=== PATIENT | male | born 1955 | race Caucasian/White ===

== ENCOUNTER 2022-12-03 13:41 | Observation (INO) | payer MEDICARE ==
[2022-12-03] MEDS ORDERED: solu-MEDROL 125 MG, Sterile H2O 10 ml 2 ML IV ONE ×2 (13:58)
[2022-12-03] MEDS ORDERED: PROVENTIL 2.5 MG/3 ML NEB IH ONE ×2 (13:58→14:12)
[2022-12-03] MEDS ORDERED: solu-MEDROL ONE (14:06)
[2022-12-03] MEDS ORDERED: Sterile H2O 10 ml IJ ONE ×2 (14:06→20:27)
[2022-12-03 14:12] LABS: Absolute Neutrophil Ct (ANC) 14.41 x10^3/uL (1.4-6.9); BASOPHIL % 0.3 % (0.0-0.4); Basophil (Absolute #) 0.05 x10^3/uL (0-0.4); Eosinophil % 1.4 % (0.00-5.0); Eosinophil (Absolute #) 0.25 x10^3/uL (0-0.5); Hematocrit 39.9 % (42-50); Hemoglobin 13.2 g/dL (12.5-18.0); IMMATURE GRAN # 0.08 x10^3u/L (0.00-0.03); IMMATURE GRAN % 0.4 % (0.00-0.4); Lymphocytes % 7.8 % (24.0-44.0); Mean Cell Volume 86.7 fL (78-100); Mean Corpuscular Hemoglobin 28.7 pg (26-32); Mean Corpuscular Hgb Concent. 33.1 g/dL (32-36); Mean Platelet Volume 9.3 fL (7.5-11.0); Monocyte (Absolute #) 1.65 x10^3/uL (0.0-1.3); Monocytes % 9.2 % (0.0-12.0); Neutrophil % 80.9 % (36.0-66.0); Platelet Count 463 x10^3/uL (150-450); White Blood Count 17.8 x10^3/uL (4.0-10.5)
--- NOTE | 2022-12-03 14:14 | XRAY ---
Indication: Short of breath. Comparison: None Portable chest demonstrates extensive COPD and large irregular left suprahilar masslike opacity better evaluated with CT with contrast exam. Heart not enlarged. Bony thorax intact.
--- NOTE | 2022-12-03 14:25 | ERPHSYRPT ---
- History of Present Illness Time Seen by Provider: 12/03/22 14:30 Source: patient Exam Limitations: no limitations Patient Subjective Stated Complaint: pt states I have been short of breath since friday. pt states I started coughing today and just couldn't catch my breath Triage Nursing Assessment: pt came into the er via wheelchair; pt is axo x3; c/o SOB; pt is tripod position; labored breathing; diminished lung sounds in all lobes; hypoxia; tachycardic; hypertensive; skin is hot to the touch, pink Physician History: Patient is a 67-year-old male presents emergency department for evaluation of shortness of breath and cough x4 days. Patient has history of COPD. Symptoms have been getting progressively worse. No nausea vomiting or diaphoresis. No chest pain or shortness of breath. No fever. Upon arrival to our ED patient was found to be hypoxic at 92% on room air. Patient was tachycardic at 119. Patient has a history of COPD and states that his symptoms are the same. Patient believes he is experiencing a COPD exacerbation. Patient voices no other complaints or concerns at this time. Portions of this note were created with voice recognition technology. There may be grammatical, spelling, punctuation or sound alike errors Timing/Duration: day(s) (4 days) Activities at Onset: activity Severity of Dyspnea-Max: moderate Severity of Dyspnea-Current: mild Possible Cause: frequent episodes Modifying Factors: Improves With: albuterol nebulizer Associated Symptoms: cough, No edema Allergies/Adverse Reactions: codeine Allergy (Verified 12/03/22 13:45) Anaphylactic Reaction Home Medications: Albuterol 2.5 mg/3 ml Neb [Proventil 2.5 mg/3 ml Neb] 2.5 mg IH Q6H PRN PRN 12/03/22 [History] Albuterol Sulfate [Albuterol Sulfate Hfa] 18 gm IH Q4HPRN PRN 12/03/22 [History] Aspirin EC 81 mg [Ecotrin 81 mg] 81 mg PO DAILY 12/03/22 [History] Budesonide/Formoterol Fumarate [Budesonide-Formoterol 160-4.5] 10.2 gm IH DAILY 12/03/22 [History] Levothyroxine Sodium [Levothyroxine] 50 mcg PO DAILY 12/03/22 [History] Lisinopril 10 mg [Zestril 10 MG] 10 mg PO DAILY 12/03/22 [History] Pravastatin Sodium 80 mg PO HS 12/03/22 [History] Roflumilast 500 mcg PO DAILY 12/03/22 [History] Theophylline Anhydrous [Theophylline ER] 300 mg PO BID 12/03/22 [History] Tiotropium [place] [Spiriva Respimat] 4 gm IH DAILY 12/03/22 [History] Ubidecarenone [Co Q10] 200 mg PO DAILY 12/03/22 [History] Hx Tetanus, Diphtheria Vaccination/Date Given: Yes Hx Influenza Vaccination/Date Given: Yes Hx Pneumococcal Vaccination/Date Given: No Immunizations Up to Date: No Travel Risk - International Travel Have you traveled outside of the country in past 3 weeks: No - Coronavirus Screening Are you exhibiting any of the following symptoms?: Yes Symptoms: Shortness of Breath Close contact with a COVID-19 positive Pt in past 14-21 Days: No - Vaccine Status Have you recieved a Covid-19 vaccination: No - Review of Systems Constitutional: No Symptoms, No Fever, No Chills Eyes: No Symptoms Ears, Nose, & Throat: No Symptoms Respiratory: No Symptoms, No Cough, No Dyspnea Cardiac: No Symptoms, No Chest Pain, No Edema, No Syncope Abdominal/Gastrointestinal: No Symptoms, No Abdominal Pain, No Nausea, No Vomiting, No Diarrhea Genitourinary Symptoms: No Symptoms, No Dysuria Musculoskeletal: No Symptoms, No Back Pain, No Neck Pain Skin: No Symptoms, No Rash Neurological: No Symptoms, No Dizziness, No Focal Weakness, No Sensory Changes Psychological: No Symptoms Endocrine: No Symptoms Hematologic/Lymphatic: No Symptoms Immunological/Allergic: No Symptoms All Other Systems: Reviewed and Negative - Past Medical History Pertinent Past Medical History: Yes Neurological History: No Pertinent History ENT History: No Pertinent History Cardiac History: High Cholesterol Respiratory History: COPD, Emphysema Endocrine Medical History: Hypothyroidism Musculoskeletal History: Arthritis GI Medical History: No Pertinent History History: No Pertinent History Psycho-Social History: No Pertinent History Male Reproductive Disorders: Prostate Cancer - Past Surgical History Past Surgical History: Yes Cardiac: Cardiac Stent Respiratory: No Pertinent History Gastrointestinal: Appendectomy Genitourinary: No Pertinent History Musculoskeletal: No Pertinent History Male Surgical History: No Pertinent History - Social History Smoking Status: Former smoker Exposure to second hand smoke: No Drug Use: none Patient Lives Alone: No - Nursing Vital Signs Nursing Vital Signs: Initial Vital Signs Temperature 99.4 F 12/03/22 13:46 Pulse Rate 116 H 12/03/22 13:46 Respiratory Rate 36 H 12/03/22 13:46 Blood Pressure 147/87 12/03/22 13:46 O2 Sat by Pulse Oximetry 93 L 12/03/22 13:46 Pain Scale Pain Intensity 2 - Physical Exam General Appearance: no apparent distress, alert Eye Exam: PERRL/EOMI Ears, Nose, Throat Exam: hearing grossly normal, normal ENT inspection, normal pharynx Neck Exam: normal inspection, supple, full range of motion Respiratory Exam: diminished breath sounds Cardiovascular/Chest Exam: normal heart sounds, regular rate/rhythm Abdominal/Gastrointestinal Exam: soft, normal bowel sounds, No tenderness, No distention, No mass Extremity Exam: non-tender, normal range of motion, normal inspection, no calf tenderness, no pedal edema Neurologic Exam: alert, oriented x 3, cooperative, [facility] of [facility] II-XII nml as tested, sen sation nml, No motor deficits Skin Exam: normal color, warm, No dry Lymphatic Exam: No adenopathy SpO2 Interpretation: normal SpO2: 92 O2 Delivery: Room Air - Course Nursing assessment & vital signs reviewed: Yes EKG Interpreted by Me: RATE ([id number]), Sinus Rhythm, NORMAL AXIS, NORMAL INTERVALS - Radiology Exams Chest X-ray Interpretation: Teleradiologist Report (COPD, chest mass opacity) - CT Exams Abdomen/Pelvis CT Interpretation: Tele-radiologist Report (Large irregularly-shaped left upper lobe masslike opacity. Findings represent consolidating airspace disease malignancy not excluded. Extensive pulmonary emphysema incompletely visualized distal AAA) Ordered Tests: Active Orders 24 hr Category Date Time Status Elevated Work Platform Operator STAT Care 12/03/22 13:59 Active EKG-ER Only STAT Care 12/03/22 13:58 Active IV Insertion STAT Care 12/03/22 13:58 Active Pulse Oximetry (ED) STAT Care 12/03/22 13:58 Active CHEST 1 VIEW (PORTABLE) Stat Exams 12/03/22 13:59 Completed CHEST WITH CONTRAST [CT] Stat Exams 12/03/22 14:33 Completed BLOOD CULTURE Stat Lab 12/03/22 14:24 Ordered CBC W DIFF Stat Lab 12/03/22 14:07 Completed CMP Stat Lab 12/03/22 14:07 Completed Respiratory Therapy Assessment DAILY RT 12/03/22 14:27 Active Transfer Order Routine Transfer 12/03/22 Ordered Medication Summary Generic Name Dose Route Start Last Admin Trade Name Monse PRN Reason Stop Dose Admin Vancomycin HCl 1 gm in 200 mls @ 125 mls/hr 12/03/22 15:40 12/03/22 16:37 Vancomycin 1 Gram/200 Ml Bag IV 12/03/22 17:15 125 mls/hr STAT ONE 125 mls/hr Administration Discontinued Medications Generic Name Dose Route Start Last Admin Trade Name Freq PRN Reason Stop Dose Admin Albuterol Sulfate 2.5 mg 12/03/22 13:58 12/03/22 14:26 Albuterol Sulfate 2.5 Mg/3 Ml Neb IH 12/03/22 13:59 2.5 mg STAT ONE Administration Albuterol Sulfate Confirm 12/03/22 14:12 Albuterol Sulfate 2.5 Mg/3 Ml Neb Administered 12/03/22 14:13 Dose 2.5 mg IH .STK-MED ONE Methylprednisolone Sodium 0 mg 12/03/22 13:58 12/03/22 14:07 Succinate 125 mg/ Sterile IV 12/03/22 13:59 125 mg Water 2 ml STAT ONE Administration Piperacillin Sod/Tazobactam 100 mls @ 200 mls/hr 12/03/22 15:40 12/03/22 16:41 Sod 3.375 gm/ Sodium Chloride IV 12/03/22 16:09 200 mls/hr STAT ONE Administration Sodium Chloride Confirm 12/03/22 15:45 Sodium Chloride 100ml Mini-Bag Plus Administered 12/03/22 15:46 Dose 100 mls @ ud IV .STK-MED ONE Vancomycin HCl Confirm 12/03/22 16:37 Vancomycin 1 Gram/200 Ml Bag Administered 12/03/22 16:38 Dose 1 gm in 200 mls @ ud IV .STK-MED ONE Methylprednisolone Sodium Succinate Confirm 12/03/22 14:06 Methylprednis Sod Succ 125 Mg/2 Ml Vial Administered 12/03/22 14:07 Dose 125 mg .ROUTE .STK-MED ONE Piperacillin Sod/Tazobactam Sod Confirm 12/03/22 15:44 Piperacillin/Tazobactam Sodium 3.375 Gm Vial Administered 12/03/22 15:45 Dose 3.375 gm IV .STK-MED ONE Sterile Water Confirm 12/03/22 14:06 Water For Injection,Sterile 10 Ml Vial Administered 12/03/22 14:07 Dose 10 ml IJ .STK-MED ONE Lab/Rad Data: Laboratory Result Diagrams 12/03/22 14:07 12/03/22 14:07 Laboratory Results 12/03/22 12/03/22 12/03/22 Range/Units 14:24 14:07 14:07 WBC 17.8 H (4.0-10.5) x10^3/uL RBC 4.60 (4.1-5.6) x10^6/uL Hgb 13.2 (12.5-18.0) g/dL Hct 39.9 L (42-50) % MCV 86.7 (78-100) fL MCH 28.7 (26-32) pg MCHC 33.1 (32-36) g/dL RDW 12.0 (11.5-14.0) % Plt Count 463 H (150-450) x10^3/uL MPV 9.3 (7.5-11.0) fL Gran % 80.9 H (36.0-66.0) % Immature Gran % (Auto) 0.4 (0.00-0.4) % Nucleat RBC Rel Count 0.0 (0.00-0.1) % Eos # (Auto) 0.25 (0-0.5) x10^3/uL Immature Gran # (Auto) 0.08 H (0.00-0.03) x10^3u/L Absolute Lymphs (auto) 1.40 (1.0-4.6) x10^3/uL Absolute Monos (auto) 1.65 H (0.0-1.3) x10^3/uL Absolute Nucleated RBC 0.00 (0.00-0.01) x10^3u/L Lymphocytes % 7.8 L (24.0-44.0) % Monocytes % 9.2 (0.0-12.0) % Eosinophils % 1.4 (0.00-5.0) % Basophils % 0.3 (0.0-0.4) % Absolute Granulocytes 14.41 H (1.4-6.9) x10^3/uL Basophils # 0.05 (0-0.4) x10^3/uL Sodium 137 (137-145) mmol/L Potassium 3.7 (3.5-5.1) mmol/L Chloride 96 L (98-107) mmol/L Carbon Dioxide 25 (22-30) mmol/L Anion Gap 18.4 H (5-15) MEQ/L BUN 20 (9-20) mg/dL Creatinine 1.14 (0.66-1.25) mg/dL Estimated GFR > 60.0 ML/MIN Glucose 142 H (74-106) mg/dL Calcium 9.0 (8.4-10.2) mg/dL Total Bilirubin 1.10 (0.2-1.3) mg/dL AST 23 (17-59) U/L ALT 25 (0-50) U/L Alkaline Phosphatase 111 (38-126) U/L Serum Total Protein 7.9 (6.3-8.2) g/dL Albumin 4.2 (3.5-5.0) g/dL Influenza Type A Ag NEGATIVE (NEGATIVE) Influenza Type B Ag NEGATIVE (NEGATIVE) RSV (PCR) NEGATIVE (Negative) SARS-CoV-2 (PCR) NEGATIVE (NEGATIVE) Slides for Path Review YES - Progress Progress: improved Air Movement: fair Progress Note: Patient is a 67-year-old male presents to our ED for evaluation of shortness of breath. Patient arrived via private vehicle. Patient has a history of COPD and states his symptoms feel the same. No treatment prior to arrival. Patient arrived he was tachycardic and hypoxic. Complexity of problems addressed is mod erate. Chronic illness with exacerbation. No critical care time. Age gender, PMH/PQ , (co-morbidities that complicate presentation) , med class, PSH, (smoker) method of arrival, CC (acute, chronic or acute on chronic), State COPA level and why or if critical. vitals, Significant ROS/PE findings, working diagnoses, COPA (number of complexity of problem addressed) Minimal, Straight forward, one self limited or minor problem Low. Acute uncomplicated stable +/- admission, Any acute or chronic illness, 2 or more self-limited or minor problems. Moderate. Acute, complicated or with systemic illness. Chronic illness with exacerbation, New diagnosis with uncertain prognosis. 2 or more chronic stable illnesses. High. Any severe exacerbation or threat to bodily function, Any treatment side effects Complexity of data reviewed and analyzed is moderate. Test ordered. Test reviewed. Patient served as independent historian. EKG reviewed independently by Dr. Moctezuma. Test results and plan of care discussed with Dr. Cisneros who accepts admission to observation. Patient agrees to admission [facility] for further evaluation and treatment. Risk of complication and or risk morbidity/mortality of patient management is high. Patient will be admitted/hospitalized for further evaluation and treatment. Patient received a nebulizer treatment and Solu-Medrol. Antibiotics infused as well. Patient will be admitted to [facility] for further evaluation and treatment. Plan of care determined based on shared decision-making model. Case discussed with Dr. David Pena cardiothoracic surgeon at [facility] who feels patient can be admitted to our facility. Patient has a aortobiiliac stent which indicates that the AAA has already been managed. Patient states that he did not know he had a AAA however he apparently does and the AAA has been repaired. Cardiothoracic surgeon Dr. Hurd patient may be kept at our hospital as a AAA is not an active issue. Yvonne 12/03/22 15:53 12/03/22 16:34 Blood Culture(s) Obtained: Yes Antibiotics given: Yes Discussed with DrRashmi: Ole Will see patient in: hospital (observation) Counseled pt/family regarding: lab results, diagnosis, rad results - Departure Departure Disposition: Observation Clinical Impression: COPD exacerbation, Hypoxia, SOB (shortness of breath), Leukocytosis, T hrombocytosis, AAA (abdominal aortic aneurysm), Lung granuloma Condition: Stable Critical Care Time: No Referrals: PETER HURST MD [Primary Care Provider] - Follow up/PCP as directed Instructions: Chronic Obstructive Pulmonary Disease
[2022-12-03 14:28] LABS: ALBUMIN 4.2 g/dL (3.5-5.0); ALKALINE PHOSPHATASE 111 U/L (38-126); ANION GAP 18.4 MEQ/L (5-15); BLOOD UREA NITROGEN 20 mg/dL (9-20); CHLORIDE 96 mmol/L (98-107); Carbon Dioxide 25 mmol/L (22-30); Creatinine 1 1.14 mg/dL (0.66-1.25); EST GLOMERULAR FILTRATION RATE > 60.0 ML/MIN; Glucose 142 mg/dL (74-106); Potassium 3.7 mmol/L (3.5-5.1); SGOT/AST 23 U/L (17-59); SGPT/ALT 25 U/L (0-50); SODIUM 137 mmol/L (137-145); Total Protein 7.9 g/dL (6.3-8.2)
[2022-12-03 14:57] LABS: INFLUENZA A NEGATIVE (NEGATIVE); INFLUENZA B NEGATIVE (NEGATIVE); RESPIRATORY SYNCTIAL VIRUS NEGATIVE (Negative); SARS-CoV-2 Xpert Express NEGATIVE (NEGATIVE)
[2022-12-03 15:00] LABS: Slide Review 1 YES
--- NOTE | 2022-12-03 15:25 | XRAY ---
Indication: Short of breath. Abnormal chest radiograph. Multiple contiguous images obtained through the chest using 80 cc Isovue 370 contrast. Comparison: None Extensive diffuse bilateral pulmonary emphysema, scattered fibrosis/scarring greatest left upper lobe, and mild bibasilar dependent atelectasis. Posterior left upper lobe demonstrates large irregular shaped noncalcified masslike opacity measuring at least 7.7 x 8.0 x 6.4 cm in greatest AP, transverse, and CC projections. Finding may represent consolidating airspace disease in the right clinical setting. Malignancy not completely excluded. Right middle lobe demonstrates 8 x 9 x 7 mm indeterminant noncalcified nodule. A few small left suprahilar and tiny posterior left base calcified granulomas. No effusion or pneumothorax. Heart not enlarged. Aorta IV arterial sclerotic without aneurysm/dissection. No pathologic mediastinal/hilar lymphadenopathy. Bony thorax intact with mild degenerative changes throughout the spine. Limited upper abdomen demonstrates incompletely visualized distal AAA measuring at least 5.2 x 4.8 cm with partially visualized aortobiiliac stent. Incidental tiny splenic calcified granulomas. Impression: 1. Large irregular posterior left upper lobe masslike opacity as detailed. Finding may represent consolidating airspace disease in the right clinical setting. If so, antibiotic therapy recommended with follow-up radiographs until resolution. Malignancy certainly not completely excluded given additional right middle lobe indeterminant noncalcified nodule. 2. Extensive pulmonary emphysema with scattered fibrosis/scarring. 3. Arteriosclerotic disease with incompletely visualized distal AAA and aortobiiliac stents. 4. Incidental chronic bony findings and old granulomatous disease.
[2022-12-03] MEDS ORDERED: PIPERACILLIN/TAZOBACTAM 3.375 GM in Sodium Chloride 100ML MINI-BAG PLUS 100 ML IV ONE (15:40)
[2022-12-03] MEDS ORDERED: VANCOMYCIN 1 GRAM/200 ML BAG 1 GM/200 ML PIGGYBACK IV ONE ×2 (15:40→16:37)
[2022-12-03] MEDS ORDERED: PIPERACILLIN/TAZOBACTAM IV ONE ×2 (15:44→20:28)
[2022-12-03] MEDS ORDERED: Sodium Chloride 100ML MINI-BAG PLUS 0 ML IV ONE (15:45)
[2022-12-03] MEDS ORDERED: VANCOMYCIN 1 GRAM/200 ML BAG 1 GM/200 ML PIGGYBACK IV SCH (16:56)
[2022-12-03] MEDS: PROVENTIL 2.5 MG/3 ML NEB IH SCH ×2 (18:50→22:30)
[2022-12-03] MEDS: solu-MEDROL 60 MG, Sterile H2O 10 ml 2 ML IV SCH ×4 (19:38→23:36)
--- NOTE | 2022-12-03 20:41 | PCM.HP ---
History of Present Illness - Chief Complaint Chief Complaint: shortness of breath for 4 days History of Present Illness: is a 67 year old male.presents emergency department for evaluation of shortness of breath and cough x4 days. Patient has history of COPD. Symptoms have been getting progressively worse. No nausea vomiting or diaphoresis. No chest pain or shortness of breath. No fever. Upon arrival to our ED patient was found to be hypoxic at 92% on room air. Patient was tachycardic at 119. Patient has a history of COPD and states that his symptoms are the same. Patient believes he is experiencing a COPD exacerbation. Patient voices no other complaints or concerns at this time. - Review of Systems Constitutional: Fever, Chills Eyes: No Symptoms Ears, Nose, & Throat: No Symptoms Respiratory: Cough, Orthopnea, Short Of Breath, Wheezing Cardiac: No Chest Pain, No Edema, No Syncope Abdominal/Gastrointestinal: No Abdominal Pain, No Nausea, No Vomiting, No Diarrhea Genitourinary Symptoms: No Dysuria Musculoskeletal: No Back Pain, No Neck Pain Skin: No Rash Neurological: No Dizziness, No Focal Weakness, No Sensory Changes Psychological: No Symptoms Endocrine: No Symptoms Hematologic/Lymphatic: No Symptoms Immunological/Allergic: No Symptoms Medications & Allergies Home Medications: Home Medication List Albuterol 2.5 mg/3 ml Neb [Proventil 2.5 mg/3 ml Neb] 2.5 mg IH Q6H PRN PRN 12/03/22 [History Confirmed 12/03/22] Albuterol Sulfate [Albuterol Sulfate Hfa] 2 puff IH BID 12/03/22 [History Confirmed 12/03/22] Aspirin EC 81 mg [Ecotrin 81 mg] 81 mg PO DAILY 12/03/22 [History Confirmed 12/03/22] Budesonide/Formoterol Fumarate [Budesonide-Formoterol 160-4.5] 2 puff IH BID 12/03/22 [History Confirmed 12/03/22] Levothyroxine Sodium [Levothyroxine] 50 mcg PO DAILY 12/03/22 [History Confirmed 12/03/22] Lisinopril 10 mg [Zestril 10 MG] 10 mg PO DAILY 12/03/22 [History Confirmed 12/03/22] Pravastatin Sodium 80 mg PO HS 12/03/22 [History Confirmed 12/03/22] Roflumilast 500 mcg PO DAILY 12/03/22 [History Confirmed 12/03/22] Theophylline Anhydrous [Theophylline ER] 300 mg PO BID 12/03/22 [History Confirmed 12/03/22] Tiotropium Upatoi [Spiriva Respimat] 2 puff IH DAILY 12/03/22 [History Confirmed 12/03/22] Ubidecarenone [Co Q10] 200 mg PO HS 12/03/22 [History Confirmed 12/03/22] Allergies/Adverse Reactions: Allergies Allergy/AdvReac Type Severity Reaction Status Date / Time codeine Allergy Severe Anaphylactic Verified 12/03/22 18:23 Reaction fluticasone furoate AdvReac Severe Tightness Verified 12/03/22 18:23 [From Breo Ellipta] in Chest vilanterol AdvReac Severe Tightness Verified 12/03/22 18:23 [From Breo Ellipta] in Chest - Past Medical History Past Medical History: Yes Neurological History: No Pertinent History ENT History: No Pertinent History Cardiac History: Aneurysm, Coronary Artery Disease, High Cholesterol, Peripheral Vascular Disease Respiratory History: COPD, Emphysema Endocrine Medical History: Hypothyroidism Musculoskelatal History: Arthritis GI Medical History: No Pertinent History History: No Pertinent History Pyscho-Social History: No Pertinent History Male Reproductive Disorders: Prostate Cancer - Past Surgical History Past Surgical History: Yes Cardiac History: Cardiac Stent Respiratory Surgery: No Pertinent History GI Surgical History: Appendectomy Genitourinary Surgical Hx: No Pertinent History Musculskeletal Surgical Hx: No Pertinent History Male Surgical History: No Pertinent History - Social History Smoking Status: Former smoker Exposure to second hand smoke: No Alcohol: None Drug Use: none - Physical Exam Vital Signs: Vital Signs - 24 hr Temp Pulse Resp BP Pulse Ox 12/03/22 20:00 97.5 F 107 H 23 135/67 96 12/03/22 18:50 102 H 20 94 L 12/03/22 17:17 98.4 F 109 H 20 121/74 95 12/03/22 17:04 98.4 F 109 H 19 121/74 95 12/03/22 16:56 92 L 12/03/22 16:45 92 L 12/03/22 16:00 109 H 24 128/68 94 L 12/03/22 15:00 107 H 20 117/62 94 L 12/03/22 14:44 110 H 28 H 127/78 94 L 12/03/22 14:30 112 H 28 H 91 L 12/03/22 14:03 92 L 12/03/22 13:46 99.4 F 116 H 36 H 147/87 93 L General Appearance: no apparent distress, alert Neurologic Exam: alert, oriented x 3, cooperative, normal mood/affect, nml cerebellar function, nml station & gait, sensation nml, No motor deficits Eye Exam: PERRL/EOMI, eyes nml inspection Ears, Nose, Throat Exam: normal ENT inspection, TMs normal, pharynx normal, m oist mucous membranes Neck Exam: normal inspection, non-tender, supple, full range of motion Respiratory Exam: diminished breath sounds, crackles/rales, rhonchi, wheezing, No respiratory distress Cardiovascular Exam: regular rate/rhythm, normal heart sounds, normal peripheral pulses Gastrointestinal/Abdomen Exam: soft, normal bowel sounds, No tenderness, No mass Back Exam: normal inspection, normal range of motion, No CVA tenderness, No vertebral tenderness Extremity Exam: normal inspection, normal range of motion, pelvis stable Skin Exam: normal color, warm, dry, No rash Lymphatic Exam: No adenopathy Results - Labs Lab/Micro Results: Lab Results-Last 24 Hours 12/03/22 12/03/22 12/03/22 Range/Units 14:07 14:07 14:24 WBC 17.8 H (4.0-10.5) x10^3/uL RBC 4.60 (4.1-5.6) x10^6/uL Hgb 13.2 (12.5-18.0) g/dL Hct 39.9 L (42-50) % MCV 86.7 (78-100) fL MCH 28.7 (26-32) pg MCHC 33.1 (32-36) g/dL RDW 12.0 (11.5-14.0) % Plt Count 463 H (150-450) x10^3/uL MPV 9.3 (7.5-11.0) fL Gran % 80.9 H (36.0-66.0) % Immature Gran % (Auto) 0.4 (0.00-0.4) % Nucleat RBC Rel Count 0.0 (0.00-0.1) % Eos # (Auto) 0.25 (0-0.5) x10^3/uL Immature Gran # (Auto) 0.08 H (0.00-0.03) x10^3u/L Absolute Lymphs (auto) 1.40 (1.0-4.6) x10^3/uL Absolute Monos (auto) 1.65 H (0.0-1.3) x10^3/uL Absolute Nucleated RBC 0.00 (0.00-0.01) x10^3u/L Lymphocytes % 7.8 L (24.0-44.0) % Monocytes % 9.2 (0.0-12.0) % Eosinophils % 1.4 (0.00-5.0) % Basophils % 0.3 (0.0-0.4) % Absolute Granulocytes 14.41 H (1.4-6.9) x10^3/uL Basophils # 0.05 (0-0.4) x10^3/uL Sodium 137 (137-145) mmol/L Potassium 3.7 (3.5-5.1) mmol/L Chloride 96 L (98-107) mmol/L Carbon Dioxide 25 (22-30) mmol/L Anion Gap 18.4 H (5-15) MEQ/L BUN 20 (9-20) mg/dL Creatinine 1.14 (0.66-1.25) mg/dL Estimated GFR > 60.0 ML/MIN Glucose 142 H (74-106) mg/dL Calcium 9.0 (8.4-10.2) mg/dL Total Bilirubin 1.10 (0.2-1.3) mg/dL AST 23 (17-59) U/L ALT 25 (0-50) U/L Alkaline Phosphatase 111 (38-126) U/L Serum Total Protein 7.9 (6.3-8.2) g/dL Albumin 4.2 (3.5-5.0) g/dL Influenza Type A Ag NEGATIVE (NEGATIVE) Influenza Type B Ag NEGATIVE (NEGATIVE) RSV (PCR) NEGATIVE (Negative) SARS-CoV-2 (PCR) NEGATIVE (NEGATIVE) Slides for Path Review YES - Radiology Impressions Radiology Exams & Impressions: Radiology Procedures Category Date Time Status CHEST 1 VIEW (PORTABLE) Stat Exams 12/03/22 13:59 Completed CHEST WITH CONTRAST [CT] Stat Exams 12/03/22 14:33 Completed - Other Procedures and Tests Respiratory Therapy 12/03/22 16:59 Respiratory Therapy Assessment DAILY Assessment/Plan (1) COPD exacerbation Current Visit: Yes Status: Acute Assessment & Plan: Chief Complaint Diagnosis Pneumonia Allergies Allergy/AdvReac Type Severity Reaction Status Date / Time codeine Allergy Severe Anaphylactic Verified 12/03/22 18:23 Reaction fluticasone furoate AdvReac Severe Tightness Verified 12/03/22 18:23 [From Breo Ellipta] in Chest vilanterol AdvReac Severe Tightness Verified 12/03/22 18:23 [From Breo Ellipta] in Chest Vital Signs (Last 24 hours) Temp Pulse Resp BP Pulse Ox 12/03/22 20:00 97.5 F 107 H 23 135/67 96 12/03/22 18:50 102 H 20 94 L 12/03/22 17:17 98.4 F 109 H 20 121/74 95 12/03/22 17:04 98.4 F 109 H 19 121/74 95 12/03/22 16:56 92 L 12/03/22 16:45 92 L 12/03/22 16:00 109 H 24 128/68 94 L 12/03/22 15:00 107 H 20 117/62 94 L 12/03/22 14:44 110 H 28 H 127/78 94 L 12/03/22 14:30 112 H 28 H 91 L 12/03/22 14:03 92 L 12/03/22 13:46 99.4 F 116 H 36 H 147/87 93 L Home Medications Medication Instructions Recorded Confirmed Last Taken Type Albuterol 2.5 mg/3 ml Neb 2.5 mg IH Q6H PRN PRN 12/03/22 12/03/22 12/03/22 History [Proventil 2.5 mg/3 ml Neb] Albuterol Sulfate [Albuterol 2 puff IH BID 12/03/22 12/03/22 12/03/22 History Sulfate Hfa] Aspirin EC 81 mg [Ecotrin 81 81 mg PO DAILY 12/03/22 12/03/22 12/03/22 History mg] Budesonide/Formoterol Fumarate 2 puff IH BID 12/03/22 12/03/22 12/03/22 History [Budesonide-Formoterol 160-4.5] Levothyroxine Sodium 50 mcg PO DAILY 12/03/22 12/03/22 12/03/22 History [Levothyroxine] Lisinopril 10 mg [Zestril 10 10 mg PO DAILY 12/03/22 12/03/22 12/03/22 History MG] Pravastatin Sodium 80 mg PO HS 12/03/22 12/03/22 12/02/22 History Roflumilast 500 mcg PO DAILY 12/03/22 12/03/22 12/03/22 History Theophylline Anhydrous 300 mg PO BID 12/03/22 12/03/22 12/03/22 History [Theophylline ER] Tiotropium Upatoi [Spiriva 2 puff IH DAILY 12/03/22 12/03/22 12/03/22 History Respimat] Ubidecarenone [Co Q10] 200 mg PO HS 12/03/22 12/03/22 12/02/22 History Current Medications Generic Name Dose Route Start Last Admin Trade Name Freq PRN Reason Stop Dose Admin Albuterol Sulfate 2.5 mg 12/03/22 19:00 12/03/22 18:50 Albuterol Sulfate 2.5 Mg/3 Ml Neb 01/02/23 18:59 2.5 mg Q4HRT [facility] Administration Methylprednisolone Sodium 0 mg 12/03/22 18:00 12/03/22 19:38 Succinate 60 mg/ Sterile Water IV 01/02/23 17:59 60 mg 2 ml Q6HT [facility] Administration Device 1 12/05/22 19:30 Therapuetic Drug Level Monitor Each 12/05/22 19:31 1XONLY ONE Piperacillin Sod/Tazobactam 100 mls @ 200 mls/hr 12/04/22 00:00 Sod 3.375 gm/ Sodium Chloride IV 12/07/22 00:00 Q6HT [facility] Vancomycin HCl 1.25 gm in 250 mls @ 150 mls/hr 12/04/22 08:00 Vancomycin 1.25 Gm/250 Ml Bag IV 12/07/22 07:59 Q18H [facility] Patient Own Medication 0 each 12/04/22 07:00 Patient Own Med Misc 01/03/23 06:59 BID [facility] Simvastatin 80 mg 12/03/22 22:00 Simvastatin 20 Mg Tablet PO 01/02/23 21:59 HS [facility] Theophylline 300 mg 12/03/22 22:00 Theophylline Anhydrous 400 Mg Tab.Er.24hr Tablet PO 01/02/23 21:59 BID [facility] Tiotropium Upatoi 1 ea 12/04/22 10:00 Tiotropium Upatoi 18 Mcg/Cap Inhaler 01/03/23 09:59 DAILY [facility] Discontinued Medications Generic Name Dose Route Start Last Admin Trade Name Freq PRN Reason Stop Dose Admin Albuterol Sulfate 2.5 mg 12/03/22 13:58 12/03/22 14:26 Albuterol Sulfate 2.5 Mg/3 Ml Neb IH 12/03/22 13:59 2.5 mg STAT ONE Administration Albuterol Sulfate Confirm 12/03/22 14:12 Albuterol Sulfate 2.5 Mg/3 Ml Neb Administered 12/03/22 14:13 Dose 2.5 mg IH .STK-MED ONE Methylprednisolone Sodium 0 mg 12/03/22 13:58 12/03/22 14:07 Succinate 125 mg/ Sterile IV 12/03/22 13:59 125 mg Water 2 ml STAT ONE Administration Vancomycin HCl 1 gm in 200 mls @ 125 mls/hr 12/03/22 15:40 12/03/22 16:37 Vancomycin 1 Gram/200 Ml Bag IV 12/03/22 17:15 125 mls/hr STAT ONE 125 mls/hr Administration Piperacillin Sod/Tazobactam 100 mls @ 200 mls/hr 12/03/22 15:40 12/03/22 16:41 Sod 3.375 gm/ Sodium Chloride IV 12/03/22 16:09 200 mls/hr STAT ONE Administration Sodium Chloride Confirm 12/03/22 15:45 Sodium Chloride 100ml Mini-Bag Plus Administered 12/03/22 15:46 Dose 100 mls @ ud IV .STK-MED ONE Vancomycin HCl Confirm 12/03/22 16:37 Vancomycin 1 Gram/200 Ml Bag Administered 12/03/22 16:38 Dose 1 gm in 200 mls @ ud IV .STK-MED ONE Vancomycin HCl 1 gm in 200 mls @ 125 mls/hr 12/03/22 16:56 12/03/22 17:32 Vancomycin 1 Gram/200 Ml Bag IV 01/02/23 16:55 Not Given Q24H [facility] Methylprednisolone Sodium Succinate Confirm 12/03/22 14:06 Methylprednis Sod Succ 125 Mg/2 Ml Vial Administered 12/03/22 14:07 Dose 125 mg .ROUTE .STK-MED ONE Piperacillin Sod/Tazobactam Sod Confirm 12/03/22 15:44 Piperacillin/Tazobactam Sodium 3.375 Gm Vial Administered 12/03/22 15:45 Dose 3.375 gm IV .STK-MED ONE Piperacillin Sod/Tazobactam Sod Confirm 12/03/22 20:28 Piperacillin/Tazobactam Sodium 3.375 Gm Vial Administered 12/03/22 20:29 Dose 3.375 gm IV .STK-MED ONE Sterile Water Confirm 12/03/22 14:06 Water For Injection,Sterile 10 Ml Vial Administered 12/03/22 14:07 Dose 10 ml IJ .STK-MED ONE Sterile Water Confirm 12/03/22 20:27 Water For Injection,Sterile 10 Ml Vial Administered 12/03/22 20:28 Dose 10 ml IJ .STK-MED ONE Intake & Output (Last 24 hours) 12/01/22 12/02/22 12/03/22 12/04/22 11:59 11:59 11:59 11:59 Intake Total 100 Balance 100 Weight 70 kg Microbiology Results (Last 24 hours) 12/03/22 14:24 Blood Blood Culture Gram Stain - Pending 12/03/22 14:24 Blood Blood Culture - Pending 12/03/22 13:59 Blood Blood Culture Gram Stain - Pending 12/03/22 13:59 Blood Blood Culture - Pending Laboratory Results (Last 24 hours) 12/03/22 12/03/22 12/03/22 14:24 14:07 14:07 WBC 17.8 H RBC 4.60 Hgb 13.2 Hct 39.9 L MCV 86.7 MCH 28.7 MCHC 33.1 RDW 12.0 Plt Count 463 H MPV 9.3 Gran % 80.9 H Immature Gran % (Auto) 0.4 Nucleat RBC Rel Count 0.0 Eos # (Auto) 0.25 Immature Gran # (Auto) 0.08 H Absolute Lymphs (auto) 1.40 Absolute Monos (auto) 1.65 H Absolute Nucleated RBC 0.00 Lymphocytes % 7.8 L Monocytes % 9.2 Eosinophils % 1.4 Basophils % 0.3 Absolute Granulocytes 14.41 H Basophils # 0.05 Sodium 137 Potassium 3.7 Chloride 96 L Carbon Dioxide 25 Anion Gap 18.4 H BUN 20 Creatinine 1.14 Estimated GFR > 60.0 Glucose 142 H Calcium 9.0 Total Bilirubin 1.10 AST 23 ALT 25 Alkaline Phosphatase 111 Serum Total Protein 7.9 Albumin 4.2 Influenza Type A Ag NEGATIVE Influenza Type B Ag NEGATIVE RSV (PCR) NEGATIVE SARS-CoV-2 (PCR) NEGATIVE Slides for Path Review YES Orders (Last 24 hours) Category Date Time Status Bedrest ROUTINE Activity 12/03/22 16:56 Active Distresser STAT Care 12/03/22 13:59 Completed Code Status Order ROUTINE Care 12/03/22 16:56 Active EKG-ER Only STAT Care 12/03/22 13:58 Completed IV Care Q6H Care 12/03/22 16:56 Active IV Insertion STAT Care 12/03/22 13:[address] in Observation ROUTINE Care 12/03/22 16:56 Active Pulse Oximetry (ED) STAT Care 12/03/22 13:58 Completed Florentino Patel ROUTINE Care 12/03/22 16:56 Active Telemetry q6h Care 12/03/22 16:56 Active Weight,Daily 0600 Care 12/03/22 16:56 Active Consistent Carbohydrate Diet 1800 Calorie Diet 12/03/22 Dinner Active CHEST 1 VIEW (PORTABLE) Stat Exams 12/03/22 13:59 Completed CHEST WITH CONTRAST [CT] Stat Exams 12/03/22 14:33 Completed BLOOD CULTURE Stat Lab 12/03/22 14:24 Stop Req CBC AM.LAB Lab 12/04/22 04:00 Ordered CBC W DIFF Stat Lab 12/03/22 14:07 Completed CMP AM.LAB Lab 12/04/22 04:00 Ordered CMP Stat Lab 12/03/22 14:07 Completed COVID/FLU/RSV Panel Stat Lab 12/03/22 14:24 Completed Vancomycin, Trough Urgent Lab 12/05/22 09:30 Ordered Albuterol 2.5 mg/3 ml Neb [Proventil 2.5 mg/3 ml Neb Med 12/03/22 14:12 Discontinued ] 2.5 mg IH .STK-MED ONE Albuterol 2.5 mg/3 ml Neb [Proventil 2.5 mg/3 ml Neb Med 12/03/22 19:00 Active ] 2.5 mg IH Q4HRT Albuterol 2.5 mg/3 ml Neb [Proventil 2.5 mg/3 ml Neb Med 12/03/22 13:58 Discontinued ] 2.5 mg IH STAT ONE Methylprednis Sod Succ 125 mg* [solu-MEDROL] Med 12/03/22 14:06 Discontinued 125 mg .ROUTE .STK-MED ONE Methylprednis Sod Succ 125 mg* [solu-MEDROL] 125 mg Med 12/03/22 13:58 Discontinued Water For Injection,Sterile [Sterile H2O 10 ml] 2 ml IV STAT Methylprednis Sod Succ 125 mg* [solu-MEDROL] 60 mg Med 12/03/22 18:00 Active Water For Injection,Sterile [Sterile H2O 10 ml] 2 ml IV Q6HT NaCl 0.9% 100 ml Mini-Bag Plus [Sodium Chloride 100ML Med 12/03/22 15:45 Discontinued MINI-BAG PLUS] 100 ml IV UD Patient Own Med [Patient Own Medication] Med 12/04/22 07:00 Ordered See Dose Instructions IH BID Piperacillin/Tazobactam 3.375G [Piperacillin/Tazobactam Med 12/03/22 15:44 Discontinued ] 3.375 gm IV .STK-MED ONE Piperacillin/Tazobactam 3.375G [Piperacillin/Tazobactam Med 12/03/22 20:28 Discontinued ] 3.375 gm IV .STK-MED ONE Piperacillin/Tazobactam 3.375G [Piperacillin/Tazobactam Med 12/04/22 00:00 Active ] 3.375 gm NaCl 0.9% 100 ml Mini-Bag Plus [Sodium Chloride 100ML MINI-BAG PLUS] 100 ml IV Q6HT Piperacillin/Tazobactam 3.375G [Piperacillin/Tazobactam Med 12/03/22 15:40 Discontinued ] 3.375 gm NaCl 0.9% 100 ml Mini-Bag Plus [Sodium Chloride 100ML MINI-BAG PLUS] 100 ml IV STAT Simvastatin 20Mg [Zocor 20Mg] Med 12/03/22 22:00 Ordered 80 mg PO HS Theophylline Anhydrous [Theophylline ER 24Hr] Med 12/03/22 22:00 Ordered 300 mg PO BID Therapuetic Drug Level Monitor [Trough Drug Levels] Med 12/05/22 19:30 Once 1 IJ 1XONLY ONE Tiotropium Upatoi Inhaler [Spiriva 18 Mcg/Cap Med 12/04/22 10:00 Ordered Inhaler] 1 ea IH DAILY Vancomycin/Water For Inj (Peg) [Vancomycin 1 Gram/200 Med 12/03/22 16:56 Discontinued ml Bag] 1 gm in 200 ml IV Q24H Vancomycin/Water For Inj (Peg) [Vancomycin 1 Gram/200 Med 12/03/22 15:40 Discontinued ml Bag] 1 gm in 200 ml IV STAT Vancomycin/Water For Inj (Peg) [Vancomycin 1 Gram/200 Med 12/03/22 16:37 Discontinued ml Bag] 1 gm in 200 ml IV UD Vancomycin/Water For Inj (Peg) [Vancomycin 1.25 gm/250 Med 12/04/22 08:00 Active ml Bag] 1.25 gm in 250 ml IV Q18H Water For Injection,Sterile [Sterile H2O 10 ml] Med 12/03/22 14:06 Discontinued 10 ml IJ .STK-MED ONE Water For Injection,Sterile [Sterile H2O 10 ml] Med 12/03/22 20:27 Discontinued 10 ml IJ .STK-MED ONE Pulse Oximetry CONTINUOUS RT 12/03/22 16:56 Active Respiratory Therapy Assessment DAILY RT 12/03/22 14:27 Completed Respiratory Therapy Assessment DAILY RT 12/03/22 16:59 Active Transfer Order Routine Transfer 12/03/22 Completed Code(s): J44.1 - CHRONIC OBSTRUCTIVE PULMONARY DISEASE W (ACUTE) EXACERBATION (2) Hypoxia Current Visit: Yes Status: Acute Code(s): R09.02 - HYPOXEMIA (3) SOB (shortness of breath) Current Visit: Yes Status: Acute Code(s): R06.02 - SHORTNESS OF BREATH
[2022-12-03] MEDS ORDERED: ZOCOR 20MG PO SCH (22:00)
[2022-12-03] MEDS: THEOPHYLLINE ER 24HR PO SCH (22:33)
[2022-12-03] MEDS: PIPERACILLIN/TAZOBACTAM 3.375 GM in Sodium Chloride 100ML MINI-BAG PLUS 100 ML IV SCH (23:37)
[2022-12-04 05:28] LABS: Hematocrit 35.6 % (42-50); Hemoglobin 11.7 g/dL (12.5-18.0); Mean Cell Volume 86.6 fL (78-100); Mean Corpuscular Hemoglobin 28.5 pg (26-32); Mean Corpuscular Hgb Concent. 32.9 g/dL (32-36); Mean Platelet Volume 9.5 fL (7.5-11.0); Platelet Count 456 x10^3/uL (150-450); Red Blood Count 4.11 x10^6/uL (4.1-5.6); Red Cell Distribution Width 11.9 % (11.5-14.0); White Blood Count 15.4 x10^3/uL (4.0-10.5)
[2022-12-04 06:01] LABS: ALBUMIN 3.7 g/dL (3.5-5.0); ALKALINE PHOSPHATASE 95 U/L (38-126); ANION GAP 16.5 MEQ/L (5-15); BLOOD UREA NITROGEN 31 mg/dL (9-20); CHLORIDE 98 mmol/L (98-107); Calcium 8.9 mg/dL (8.4-10.2); Carbon Dioxide 24 mmol/L (22-30); EST GLOMERULAR FILTRATION RATE > 60.0 ML/MIN; Glucose 298 mg/dL (74-106); Potassium 3.8 mmol/L (3.5-5.1); SGOT/AST 24 U/L (17-59); SGPT/ALT 25 U/L (0-50); SODIUM 135 mmol/L (137-145); Total Protein 7.1 g/dL (6.3-8.2)
[2022-12-04] MEDS: PIPERACILLIN/TAZOBACTAM 3.375 GM in Sodium Chloride 100ML MINI-BAG PLUS 100 ML IV SCH ×3 (07:24→17:44)
[2022-12-04] MEDS: solu-MEDROL 60 MG, Sterile H2O 10 ml 2 ML IV SCH ×6 (07:25→17:49)
[2022-12-04] MEDS: PROVENTIL 2.5 MG/3 ML NEB IH SCH ×4 (07:35→19:10)
[2022-12-04] MEDS: Spiriva 18 Mcg/Cap Inhaler IH SCH (07:38)
[2022-12-04] MEDS ORDERED: MEDICATION INTERVENTION MC SCH (08:15)
[2022-12-04] MEDS: SYNTHROID 50 MCG PO SCH (08:16)
[2022-12-04] MEDS: VANCOMYCIN 1.25 GM/250 ML BAG 1.25 GM/250 ML PIGGYBACK IV SCH (08:16)
[2022-12-04] MEDS: DALIRESP PO SCH (09:31)
[2022-12-04] MEDS: ECOTRIN 81 MG PO SCH (09:32)
[2022-12-04] MEDS: THEOPHYLLINE ER 24HR PO SCH ×2 (09:32→21:12)
[2022-12-04] MEDS: Zestril 10 MG PO SCH (09:32)
[2022-12-04] MEDS ORDERED: Ativan 2 MG/1 ML VIAL IV PRN (12:22)
--- NOTE | 2022-12-04 13:24 | PCM.NOTE ---
Date and Time: 12/04/22 1323 Subjective Assessment: breathing better. - Review of Systems Constitutional: No Fever, No Chills Eyes: No Symptoms Ears, Nose, & Throat: No Symptoms Respiratory: No Cough, No Short Of Breath Cardiac: No Chest Pain, No Edema, No Syncope Abdominal/Gastrointestinal: No Abdominal Pain, No Nausea, No Vomiting, No Diarrhea Genitourinary Symptoms: No Dysuria Musculoskeletal: No Back Pain, No Neck Pain Skin: No Rash Neurological: No Dizziness, No Focal Weakness, No Sensory Changes Psychological: No Symptoms Endocrine: No Symptoms Hematologic/Lymphatic: No Symptoms Immunological/Allergic: No Symptoms Objective Exam General Appearance: no apparent distress, alert Neurologic Exam: alert, oriented x 3, cooperative, normal mood/affect, nml cerebellar function, sensation nml, No motor deficits Skin Exam: normal color, warm, dry Eye Exam: PERRL, EOMI, eyes nml inspection Ears, Nose, Throat Exam: normal ENT inspection, pharynx normal, moist mucous membranes Neck Exam: normal inspection, non-tender, supple, full range of motion Respiratory Exam: crackles/rales, rhonchi, wheezing, No respiratory distress Cardiovascular Exam: regular rate/rhythm, normal heart sounds Gastrointestinal/Abdomen Exam: soft, No tenderness, No mass Extremity Exam: normal inspection, normal range of motion Back Exam: normal inspection, normal range of motion, No CVA tenderness, No vertebral tenderness Male Genitalia Exam: deferred Rectal Exam: deferred OBJECTIVE DATA Vital Signs: Vital Signs - 24 hr Temp Pulse Resp BP Pulse Ox 12/04/22 12:23 86 18 94 L 12/04/22 12:00 97.7 F 92 H 16 142/66 95 12/04/22 07:40 85 18 93 L 12/04/22 07:23 98.0 F 89 17 142/69 97 12/04/22 04:00 97.8 F 91 H 21 144/79 97 12/03/22 23:29 97.9 F 101 H 24 129/66 95 12/03/22 22:30 99 H 18 93 L 12/03/22 20:00 97.5 F 107 H 23 135/67 96 12/03/22 18:50 102 H 20 94 L 12/03/22 17:17 98.4 F 109 H 20 121/74 95 12/03/22 17:04 98.4 F 109 H 19 121/74 95 12/03/22 16:56 92 L 12/03/22 16:45 92 L 12/03/22 16:00 109 H 24 128/68 94 L 12/03/22 15:00 107 H 20 117/62 94 L 12/03/22 14:44 110 H 28 H 127/78 94 L 12/03/22 14:30 112 H 28 H 91 L 12/03/22 14:03 92 L 12/03/22 13:46 99.4 F 116 H 36 H 147/87 93 L Pain Assessment - Last Documented Pain Intensity 0 Intake and Output: Intake & Output 12/02/22 12/03/22 12/04/22 12/05/22 11:59 11:59 11:59 11:59 Intake Total 940 Output Total 725 Balance 215 Weight 71.2 kg Lab Results: Lab Results-Last 24 Hours 12/03/22 12/03/22 12/03/22 Range/Units 14:07 14:07 14:24 WBC 17.8 H (4.0-10.5) x10^3/uL RBC 4.60 (4.1-5.6) x10^6/uL Hgb 13.2 (12.5-18.0) g/dL Hct 39.9 L (42-50) % MCV 86.7 (78-100) fL MCH 28.7 (26-32) pg MCHC 33.1 (32-36) g/dL RDW 12.0 (11.5-14.0) % Plt Count 463 H (150-450) x10^3/uL MPV 9.3 (7.5-11.0) fL Gran % 80.9 H (36.0-66.0) % Immature Gran % (Auto) 0.4 (0.00-0.4) % Nucleat RBC Rel Count 0.0 (0.00-0.1) % Eos # (Auto) 0.25 (0-0.5) x10^3/uL Immature Gran # (Auto) 0.08 H (0.00-0.03) x10^3u/L Absolute Lymphs (auto) 1.40 (1.0-4.6) x10^3/uL Absolute Monos (auto) 1.65 H (0.0-1.3) x10^3/uL Absolute Nucleated RBC 0.00 (0.00-0.01) x10^3u/L Lymphocytes % 7.8 L (24.0-44.0) % Monocytes % 9.2 (0.0-12.0) % Eosinophils % 1.4 (0.00-5.0) % Basophils % 0.3 (0.0-0.4) % Absolute Granulocytes 14.41 H (1.4-6.9) x10^3/uL Basophils # 0.05 (0-0.4) x10^3/uL Sodium 137 (137-145) mmol/L Potassium 3.7 (3.5-5.1) mmol/L Chloride 96 L (98-107) mmol/L Carbon Dioxide 25 (22-30) mmol/L Anion Gap 18.4 H (5-15) MEQ/L BUN 20 (9-20) mg/dL Creatinine 1.14 (0.66-1.25) mg/dL Estimated GFR > 60.0 ML/MIN Glucose 142 H (74-106) mg/dL Calcium 9.0 (8.4-10.2) mg/dL Total Bilirubin 1.10 (0.2-1.3) mg/dL AST 23 (17-59) U/L ALT 25 (0-50) U/L Alkaline Phosphatase 111 (38-126) U/L Serum Total Protein 7.9 (6.3-8.2) g/dL Albumin 4.2 (3.5-5.0) g/dL Influenza Type A Ag NEGATIVE (NEGATIVE) Influenza Type B Ag NEGATIVE (NEGATIVE) RSV (PCR) NEGATIVE (Negative) SARS-CoV-2 (PCR) NEGATIVE (NEGATIVE) Slides for Path Review YES 12/04/22 12/04/22 Range/Units 05:08 05:08 WBC 15.4 H (4.0-10.5) x10^3/uL RBC 4.11 (4.1-5.6) x10^6/uL Hgb 11.7 L (12.5-18.0) g/dL Hct 35.6 L (42-50) % MCV 86.6 (78-100) fL MCH 28.5 (26-32) pg MCHC 32.9 (32-36) g/dL RDW 11.9 (11.5-14.0) % Plt Count 456 H (150-450) x10^3/uL MPV 9.5 (7.5-11.0) fL Gran % (36.0-66.0) % Immature Gran % (Auto) (0.00-0.4) % Nucleat RBC Rel Count (0.00-0.1) % Eos # (Auto) (0-0.5) x10^3/uL Immature Gran # (Auto) (0.00-0.03) x10^3u/L Absolute Lymphs (auto) (1.0-4.6) x10^3/uL Absolute Monos (auto) (0.0-1.3) x10^3/uL Absolute Nucleated RBC (0.00-0.01) x10^3u/L Lymphocytes % (24.0-44.0) % Monocytes % (0.0-12.0) % Eosinophils % (0.00-5.0) % Basophils % (0.0-0.4) % Absolute Granulocytes (1.4-6.9) x10^3/uL Basophils # (0-0.4) x10^3/uL Sodium 135 L (137-145) mmol/L Potassium 3.8 (3.5-5.1) mmol/L Chloride 98 (98-107) mmol/L Carbon Dioxide 24 (22-30) mmol/L Anion Gap 16.5 H (5-15) MEQ/L BUN 31 H (9-20) mg/dL Creatinine 1.20 (0.66-1.25) mg/dL Estimated GFR > 60.0 ML/MIN Glucose 298 H (74-106) mg/dL Calcium 8.9 (8.4-10.2) mg/dL Total Bilirubin 0.60 (0.2-1.3) mg/dL AST 24 (17-59) U/L ALT 25 (0-50) U/L Alkaline Phosphatase 95 (38-126) U/L Serum Total Protein 7.1 (6.3-8.2) g/dL Albumin 3.7 (3.5-5.0) g/dL Influenza Type A Ag (NEGATIVE) Influenza Type B Ag (NEGATIVE) RSV (PCR) (Negative) SARS-CoV-2 (PCR) (NEGATIVE) Slides for Path Review Radiology Exams: Radiology Procedures Category Date Time Status CHEST 1 VIEW (PORTABLE) Stat Exams 12/03/22 13:59 Completed CHEST WITH CONTRAST [CT] Stat Exams 12/03/22 14:33 Completed Assessment/Plan (1) COPD exacerbation Current Visit: Yes Status: Acute Assessment & Plan: Chief Complaint Diagnosis shortness of breath for 4 days Allergies Allergy/AdvReac Type Severity Reaction Status Date / Time codeine Allergy Severe Anaphylactic Verified 12/03/22 18:23 Reaction fluticasone furoate AdvReac Severe Tightness Verified 12/03/22 18:23 [From Breo Ellipta] in Chest vilanterol AdvReac Severe Tightness Verified 12/03/22 18:23 [From Breo Ellipta] in Chest Vital Signs (Last 24 hours) Temp Pulse Resp BP Pulse Ox 12/04/22 12:23 86 18 94 L 12/04/22 12:00 97.7 F 92 H 16 142/66 95 12/04/22 07:40 85 18 93 L 12/04/22 07:23 98.0 F 89 17 142/69 97 12/04/22 04:00 97.8 F 91 H 21 144/79 97 12/03/22 23:29 97.9 F 101 H 24 129/66 95 12/03/22 22:30 99 H 18 93 L 12/03/22 20:00 97.5 F 107 H 23 135/67 96 12/03/22 18:50 102 H 20 94 L 12/03/22 17:17 98.4 F 109 H 20 121/74 95 12/03/22 17:04 98.4 F 109 H 19 121/74 95 12/03/22 16:56 92 L 12/03/22 16:45 92 L 12/03/22 16:00 109 H 24 128/68 94 L 12/03/22 15:00 107 H 20 117/62 94 L 12/03/22 14:44 110 H 28 H 127/78 94 L 12/03/22 14:30 112 H 28 H 91 L 12/03/22 14:03 92 L 12/03/22 13:46 99.4 F 116 H 36 H 147/87 93 L Home Medications Medication Instructions Recorded Confirmed Last Taken Type Albuterol 2.5 mg/3 ml Neb 2.5 mg IH Q6H PRN PRN 12/03/22 12/03/22 12/03/22 History [Proventil 2.5 mg/3 ml Neb] Albuterol Sulfate [Albuterol 2 puff IH BID 12/03/22 12/03/22 12/03/22 History Sulfate Hfa] Aspirin EC 81 mg [Ecotrin 81 81 mg PO DAILY 12/03/22 12/03/22 12/03/22 History mg] Budesonide/Formoterol Fumarate 2 puff IH BID 12/03/22 12/03/22 12/03/22 History [Budesonide-Formoterol 160-4.5] Levothyroxine Sodium 50 mcg PO DAILY 12/03/22 12/03/22 12/03/22 History [Levothyroxine] Lisinopril 10 mg [Zestril 10 10 mg PO DAILY 12/03/22 12/03/22 12/03/22 History MG] Pravastatin Sodium 80 mg PO HS 12/03/22 12/03/22 12/02/22 History Roflumilast 500 mcg PO DAILY 12/03/22 12/03/22 12/03/22 History Theophylline Anhydrous 300 mg PO BID 12/03/22 12/03/22 12/03/22 History [Theophylline ER] Tiotropium [place] [Spiriva 2 puff IH DAILY 12/03/22 12/03/22 12/03/22 History Respimat] Ubidecarenone [Co Q10] 200 mg PO HS 12/03/22 12/03/22 12/02/22 History Current Medications Generic Name Dose Route Start Last Admin Trade Name Freq PRN Reason Stop Dose Admin Albuterol Sulfate 2.5 mg 12/04/22 07:00 12/04/22 12:23 Albuterol Sulfate 2.5 Mg/3 Ml Neb IH 01/03/23 06:59 2.5 mg QIDRT KARSON Administration Aspirin 81 mg 12/04/22 10:00 12/04/22 09:32 Aspirin 81 Mg Tablet.Ec PO 01/03/23 09:59 81 mg DAILY KARSON Administration Benzonatate 100 mg 12/04/22 13:00 Benzonatate 100 Mg Capsule PO 01/03/23 12:59 QID KARSON Methylprednisolone Sodium 0 mg 12/03/22 18:00 12/04/22 11:54 Succinate 60 mg/ Sterile Water IV 01/02/23 17:59 60 mg 2 ml Q6HT KARSON Administration Device 1 12/05/22 19:30 Therapuetic Drug Level Monitor Each IJ 12/05/22 19:31 1XONLY ONE Piperacillin Sod/Tazobactam 100 mls @ 200 mls/hr 12/04/22 00:00 12/04/22 11:54 Sod 3.375 gm/ Sodium Chloride IV 12/07/22 00:00 200 mls/hr Q6HT KARSON Administration Vancomycin HCl 1.25 gm in 250 mls @ 150 mls/hr 12/04/22 08:00 12/04/22 08:16 Vancomycin 1.25 Gm/250 Ml Bag IV 12/07/22 07:59 150 mls/hr Q18H KARSON Administration Levothyroxine Sodium 50 mcg 12/04/22 08:00 12/04/22 08:16 Levothyroxine Sodium 50 Mcg Tablet PO 01/03/23 07:59 50 mcg DAILY@0700 KARSON Administration Lisinopril 10 mg 12/04/22 10:00 12/04/22 09:32 Lisinopril 10 Mg Tablet PO 01/03/23 09:59 10 mg DAILY KARSON Administration Lorazepam 1 mg 12/04/22 12:22 Lorazepam 2 Mg/1 Ml 2 Mg Vial IV 01/03/23 12:21 Q6H PRN PRN SHAKING/TREMORS Miscellaneous Information 1 each 12/04/22 08:15 Medication Intervention 1 Each Each 01/03/23 08:14 .RN TO CHECK KARSON Patient Own Med : 1 each 12/04/22 07:00 Symbicort IH 01/03/23 06:59 BIDRT [facility] Roflumilast 500 mcg 12/04/22 10:00 12/04/22 09:31 Roflumilast 500 Mcg Tablet PO 01/03/23 09:59 500 mcg DAILY KARSON Administration Simvastatin 40 mg 12/04/22 22:00 Simvastatin 20 Mg Tablet PO 01/03/23 21:59 HS [facility] Theophylline 300 mg 12/03/22 22:00 12/04/22 09:32 Theophylline Anhydrous 400 Mg Tab.Er.24hr Tablet PO 01/02/23 21:59 300 mg BID KARSON Administration Tiotropium [place] 1 ea 12/04/22 10:00 12/04/22 07:38 Tiotropium [place] 18 Mcg/Cap Inhaler 01/03/23 09:59 1 ea DAILY KARSON Administration Discontinued Medications Generic Name Dose Route Start Last Admin Trade Name Roniq PRN Reason Stop Dose Admin Albuterol Sulfate 2.5 mg 12/03/22 13:58 12/03/22 14:26 Albuterol Sulfate 2.5 Mg/3 Ml Neb 12/03/22 13:59 2.5 mg STAT ONE Administration Albuterol Sulfate Confirm 12/03/22 14:12 Albuterol Sulfate 2.5 Mg/3 Ml Neb Administered 12/03/22 14:13 Dose 2.5 mg IH .STK-MED ONE Albuterol Sulfate 2.5 mg 12/03/22 19:00 12/03/22 22:30 Albuterol Sulfate 2.5 Mg/3 Ml Neb 01/02/23 18:59 2.5 mg Q4HRT KARSON Administration Methylprednisolone Sodium 0 mg 12/03/22 13:58 12/03/22 14:07 Succinate 125 mg/ Sterile IV 12/03/22 13:59 125 mg Water 2 ml STAT ONE Administration Vancomycin HCl 1 gm in 200 mls @ 125 mls/hr 12/03/22 15:40 12/03/22 16:37 Vancomycin 1 Gram/200 Ml Bag IV 12/03/22 17:15 125 mls/hr STAT ONE 125 mls/hr Administration Piperacillin Sod/Tazobactam 100 mls @ 200 mls/hr 12/03/22 15:40 12/03/22 16:41 Sod 3.375 gm/ Sodium Chloride IV 12/03/22 16:09 200 mls/hr STAT ONE Administration Sodium Chloride Confirm 12/03/22 15:45 Sodium Chloride 100ml Mini-Bag Plus Administered 12/03/22 15:46 Dose 100 mls @ ud IV .STK-MED ONE Vancomycin HCl Confirm 12/03/22 16:37 Vancomycin 1 Gram/200 Ml Bag Administered 12/03/22 16:38 Dose 1 gm in 200 mls @ ud IV .STK-MED ONE Vancomycin HCl 1 gm in 200 mls @ 125 mls/hr 12/03/22 16:56 12/03/22 17:32 Vancomycin 1 Gram/200 Ml Bag IV 01/02/23 16:55 Not Given Q24H KARSON Methylprednisolone Sodium Succinate Confirm 12/03/22 14:06 Methylprednis Sod Succ 125 Mg/2 Ml Vial Administered 12/03/22 14:07 Dose 125 mg .ROUTE .STK-MED ONE Piperacillin Sod/Tazobactam Sod Confirm 12/03/22 15:44 Piperacillin/Tazobactam Sodium 3.375 Gm Vial Administered 12/03/22 15:45 Dose 3.375 gm IV .STK-MED ONE Piperacillin Sod/Tazobactam Sod Confirm 12/03/22 20:28 Piperacillin/Tazobactam Sodium 3.375 Gm Vial Administered 12/03/22 20:29 Dose 3.375 gm IV .STK-MED ONE Simvastatin 80 mg 12/03/22 22:00 12/03/22 22:33 Simvastatin 20 Mg Tablet PO 01/02/23 21:59 80 mg HS KARSON Administration Sterile Water Confirm 12/03/22 14:06 Water For Injection,Sterile 10 Ml Vial Administered 12/03/22 14:07 Dose 10 ml IJ .STK-MED ONE Sterile Water Confirm 12/03/22 20:27 Water For Injection,Sterile 10 Ml Vial Administered 12/03/22 20:28 Dose 10 ml IJ .STK-MED ONE Intake & Output (Last 24 hours) 12/02/22 12/03/22 12/04/22 12/05/22 11:59 11:59 11:59 11:59 Intake Total 940 Output Total 725 Balance 215 Weight 71.2 kg Microbiology Results (Last 24 hours) 12/03/22 13:59 Blood Blood Culture Gram Stain - Pending 12/03/22 13:59 Blood Blood Culture - Pending Laboratory Results (Last 24 hours) 12/04/22 12/04/22 12/03/22 05:08 05:08 14:24 WBC 15.4 H RBC 4.11 Hgb 11.7 L Hct 35.6 L MCV 86.6 MCH 28.5 MCHC 32.9 RDW 11.9 Plt Count 456 H MPV 9.5 Gran % Immature Gran % (Auto) Nucleat RBC Rel Count Eos # (Auto) Immature Gran # (Auto) Absolute Lymphs (auto) Absolute Monos (auto) Absolute Nucleated RBC Lymphocytes % Monocytes % Eosinophils % Basophils % Absolute Granulocytes Basophils # Sodium 135 L Potassium 3.8 Chloride 98 Carbon Dioxide 24 Anion Gap 16.5 H BUN 31 H Creatinine 1.20 Estimated GFR > 60.0 Glucose 298 H Calcium 8.9 Total Bilirubin 0.60 AST 24 ALT 25 Alkaline Phosphatase 95 Serum Total Protein 7.1 Albumin 3.7 Influenza Type A Ag NEGATIVE Influenza Type B Ag NEGATIVE RSV (PCR) NEGATIVE SARS-CoV-2 (PCR) NEGATIVE Slides for Path Review 12/03/22 12/03/22 14:07 14:07 WBC 17.8 H RBC 4.60 Hgb 13.2 Hct 39.9 L MCV 86.7 MCH 28.7 MCHC 33.1 RDW 12.0 Plt Count 463 H MPV 9.3 Gran % 80.9 H Immature Gran % (Auto) 0.4 Nucleat RBC Rel Count 0.0 Eos # (Auto) 0.25 Immature Gran # (Auto) 0.08 H Absolute Lymphs (auto) 1.40 Absolute Monos (auto) 1.65 H Absolute Nucleated RBC 0.00 Lymphocytes % 7.8 L Monocytes % 9.2 Eosinophils % 1.4 Basophils % 0.3 Absolute Granulocytes 14.41 H Basophils # 0.05 Sodium 137 Potassium 3.7 Chloride 96 L Carbon Dioxide 25 Anion Gap 18.4 H BUN 20 Creatinine 1.14 Estimated GFR > 60.0 Glucose 142 H Calcium 9.0 Total Bilirubin 1.10 AST 23 ALT 25 Alkaline Phosphatase 111 Serum Total Protein 7.9 Albumin 4.2 Influenza Type A Ag Influenza Type B Ag RSV (PCR) SARS-CoV-2 (PCR) Slides for Path Review YES Orders (Last 24 hours) Category Date Time Status Bedrest ROUTINE Activity 12/03/22 16:56 Active Machine Designer STAT Care 12/03/22 13:59 Completed Code Status Order ROUTINE Care 12/03/22 16:56 Active EKG-ER Only STAT Care 12/03/22 13:58 Completed IV Care Q6H Care 12/03/22 16:56 Active IV Insertion STAT Care 12/03/22 13:[address] in Observation ROUTINE Care 12/03/22 16:56 Active Pulse Oximetry (ED) STAT Care 12/03/22 13:58 Completed Florentino Patel ROUTINE Care 12/03/22 16:56 Active Telemetry q6h Care 12/03/22 16:56 Active Weight,Daily 0600 Care 12/03/22 16:56 Active Consistent Carbohydrate Diet 1800 Calorie Diet 12/03/22 Dinner Active CHEST 1 VIEW (PORTABLE) Stat Exams 12/03/22 13:59 Completed CHEST WITH CONTRAST [CT] Stat Exams 12/03/22 14:33 Completed BLOOD CULTURE Stat Lab 12/03/22 14:24 Stop Req CBC AM.LAB Lab 12/04/22 05:08 Completed CBC W DIFF Stat Lab 12/03/22 14:07 Completed CMP AM.LAB Lab 12/04/22 05:08 Completed CMP Stat Lab 12/03/22 14:07 Completed COVID/FLU/RSV Panel Stat Lab 12/03/22 14:24 Completed Vancomycin, Trough Urgent Lab 12/05/22 09:30 Ordered Albuterol 2.5 mg/3 ml Neb [Proventil 2.5 mg/3 ml Neb Med 12/03/22 14:12 Discontinued ] 2.5 mg IH .STK-MED ONE Albuterol 2.5 mg/3 ml Neb [Proventil 2.5 mg/3 ml Neb Med 12/03/22 19:00 Discontinued ] 2.5 mg IH Q4HRT Albuterol 2.5 mg/3 ml Neb [Proventil 2.5 mg/3 ml Neb Med 12/04/22 07:00 Active ] 2.5 mg IH QIDRT Albuterol 2.5 mg/3 ml Neb [Proventil 2.5 mg/3 ml Neb Med 12/03/22 13:58 Discontinued ] 2.5 mg IH STAT ONE Aspirin EC 81 mg [Ecotrin 81 mg] Med 12/04/22 10:00 Active 81 mg PO DAILY Benzonatate 100 mg [Tessalon Perles 100 MG] Med 12/04/22 13:00 Active 100 mg PO QID Levothyroxine Sodium 50 Mcg [Synthroid 50 Mcg] Med 12/04/22 08:00 Active 50 mcg PO DAILY@0700 Lisinopril 10 mg [Zestril 10 MG] Med 12/04/22 10:00 Active 10 mg PO DAILY Lorazepam 2 mg/1 ml [Ativan 2 MG/1 ML VIAL] Med 12/04/22 12:22 Active 1 mg IV Q6H PRN PRN Medication Intervention Med 12/04/22 08:15 Active 1 each MC .RN TO CHECK Methylprednis Sod Succ 125 mg* [solu-MEDROL] Med 12/03/22 14:06 Discontinued 125 mg .ROUTE .STK-MED ONE Methylprednis Sod Succ 125 mg* [solu-MEDROL] 125 mg Med 12/03/22 13:58 Discontinued Water For Injection,Sterile [Sterile H2O 10 ml] 2 ml IV STAT Methylprednis Sod Succ 125 mg* [solu-MEDROL] 60 mg Med 12/03/22 18:00 Active Water For Injection,Sterile [Sterile H2O 10 ml] 2 ml IV Q6HT NaCl 0.9% 100 ml Mini-Bag Plus [Sodium Chloride 100ML Med 12/03/22 15:45 Discontinued MINI-BAG PLUS] 100 ml IV UD Patient Own Med [Patient Own Medication] Med 12/04/22 07:00 Active 1 each IH BIDRT Piperacillin/Tazobactam 3.375G [Piperacillin/Tazobactam Med 12/03/22 15:44 Discontinued ] 3.375 gm IV .STK-MED ONE Piperacillin/Tazobactam 3.375G [Piperacillin/Tazobactam Med 12/03/22 20:28 Discontinued ] 3.375 gm IV .STK-MED ONE Piperacillin/Tazobactam 3.375G [Piperacillin/Tazobactam Med 12/04/22 00:00 Active ] 3.375 gm NaCl 0.9% 100 ml Mini-Bag Plus [Sodium Chloride 100ML MINI-BAG PLUS] 100 ml IV Q6HT Piperacillin/Tazobactam 3.375G [Piperacillin/Tazobactam Med 12/03/22 15:40 Discontinued ] 3.375 gm NaCl 0.9% 100 ml Mini-Bag Plus [Sodium Chloride 100ML MINI-BAG PLUS] 100 ml IV STAT Roflumilast [Daliresp] Med 12/04/22 10:00 Active 500 mcg PO DAILY Simvastatin 20Mg [Zocor 20Mg] Med 12/04/22 22:00 Active 40 mg PO HS Simvastatin 20Mg [Zocor 20Mg] Med 12/03/22 22:00 Discontinued 80 mg PO HS Theophylline Anhydrous [Theophylline ER 24Hr] Med 12/03/22 22:00 Active 300 mg PO BID Therapuetic Drug Level Monitor [Trough Drug Levels] Med 12/05/22 19:30 Once 1 IJ 1XONLY ONE Tiotropium [place] Inhaler [Spiriva 18 Mcg/Cap Med 12/04/22 10:00 Active Inhaler] 1 ea IH DAILY Vancomycin/Water For Inj (Peg) [Vancomycin 1 Gram/200 Med 12/03/22 16:56 Discontinued ml Bag] 1 gm in 200 ml IV Q24H Vancomycin/Water For Inj (Peg) [Vancomycin 1 Gram/200 Med 12/03/22 15:40 Discontinued ml Bag] 1 gm in 200 ml IV STAT Vancomycin/Water For Inj (Peg) [Vancomycin 1 Gram/200 Med 12/03/22 16:37 Discontinued ml Bag] 1 gm in 200 ml IV UD Vancomycin/Water For Inj (Peg) [Vancomycin 1.25 gm/250 Med 12/04/22 08:00 Active ml Bag] 1.25 gm in 250 ml IV Q18H Water For Injection,Sterile [Sterile H2O 10 ml] Med 12/03/22 14:06 Discontinued 10 ml IJ .STK-MED ONE Water For Injection,Sterile [Sterile H2O 10 ml] Med 12/03/22 20:27 Discontinued 10 ml IJ .STK-MED ONE Oxygen NASAL CANNULA 2 lpm RT 12/04/22 07:40 Active Pulse Oximetry CONTINUOUS RT 12/03/22 16:56 Active Respiratory Therapy Assessment DAILY RT 12/03/22 14:27 Completed Respiratory Therapy Assessment DAILY RT 12/03/22 16:59 Active Code(s): J44.1 - CHRONIC OBSTRUCTIVE PULMONARY DISEASE W (ACUTE) EXACERBATION (2) Hypoxia Current Visit: Yes Status: Acute Code(s): R09.02 - HYPOXEMIA (3) SOB (shortness of breath) Current Visit: Yes Status: Acute Code(s): R06.02 - SHORTNESS OF BREATH
[2022-12-04] MEDS: Tessalon Perles 100 MG PO SCH ×3 (13:26→21:11)
[2022-12-04] MEDS: PATIENT OWN MEDICATION IH SCH (19:37)
[2022-12-04] MEDS ORDERED: ZOCOR 20MG PO SCH (22:00)
[2022-12-04] MEDS ORDERED: UBIDECARENONE 200 MG PO SCH (22:00)
[2022-12-05] MEDS: PIPERACILLIN/TAZOBACTAM 3.375 GM in Sodium Chloride 100ML MINI-BAG PLUS 100 ML IV SCH ×3 (01:03→12:32)
[2022-12-05] MEDS: solu-MEDROL 60 MG, Sterile H2O 10 ml 2 ML IV SCH ×6 (01:03→12:31)
[2022-12-05] MEDS: VANCOMYCIN 1.25 GM/250 ML BAG 1.25 GM/250 ML PIGGYBACK IV SCH (01:35)
[2022-12-05] MEDS: SYNTHROID 50 MCG PO SCH (06:49)
[2022-12-05] MEDS: PROVENTIL 2.5 MG/3 ML NEB IH SCH ×2 (07:25→11:32)
[2022-12-05] MEDS: PATIENT OWN MEDICATION IH SCH (07:27)
[2022-12-05] MEDS: Spiriva 18 Mcg/Cap Inhaler IH SCH (07:28)
[2022-12-05] MEDS: Zestril 10 MG PO SCH (09:43)
[2022-12-05] MEDS: Tessalon Perles 100 MG PO SCH ×2 (09:43→12:31)
[2022-12-05] MEDS: DALIRESP PO SCH (09:43)
[2022-12-05] MEDS: ECOTRIN 81 MG PO SCH (09:43)
[2022-12-05] MEDS: THEOPHYLLINE ER 24HR PO SCH (09:44)
[2022-12-05 11:32] VITALS: BP 121/60
[2022-12-05 11:34] VITALS: PULSE 98; O2SAT 92
--- NOTE | 2022-12-05 16:58 | PCM.DS ---
Discharge Summary Date of Admission: 12/03/22 16:52 Admitting Physician: PETER HURST Primary Care Provider: PETER HURST Allergies Allergies codeine Allergy (Severe, Verified 12/03/22 18:23) Anaphylactic Reaction fluticasone furoate [From Breo Ellipta] Adverse Reaction (Severe, Verified 12/03/22 18:23) Tightness in Chest vilanterol [From Breo Ellipta] Adverse Reaction (Severe, Verified 12/03/22 18:23) Tightness in Chest Hospital Summary - Hospital Course Hospital Course: Chief Complaint Diagnosis shortness of breath for 4 days Allergies Allergy/AdvReac Type Severity Reaction Status Date / Time codeine Allergy Severe Anaphylactic Verified 12/03/22 18:23 Reaction fluticasone furoate AdvReac Severe Tightness Verified 12/03/22 18:23 [From Breo Ellipta] in Chest vilanterol AdvReac Severe Tightness Verified 12/03/22 18:23 [From Breo Ellipta] in Chest Vital Signs (Last 24 hours) Temp Pulse Resp BP Pulse Ox 12/05/22 11:33 98 H 20 92 L 12/05/22 11:31 97.6 F 101 H 23 121/60 91 L 12/05/22 07:14 97.5 F 93 H 18 101/64 93 L 12/05/22 07:00 93 H 18 94 L 12/05/22 02:45 97.7 F 95 H 20 148/69 95 12/04/22 23:39 98.2 F 106 H 20 128/60 93 L 12/04/22 19:59 97.7 F 108 H 23 148/61 94 L Home Medications Medication Instructions Recorded Confirmed Last Taken Type Albuterol 2.5 mg/3 ml Neb 2.5 mg IH Q6H PRN PRN 12/03/22 12/03/22 12/03/22 History [Proventil 2.5 mg/3 ml Neb] Albuterol Sulfate [Albuterol 2 puff IH BID 12/03/22 12/03/22 12/03/22 History Sulfate Hfa] Aspirin EC 81 mg [Ecotrin 81 81 mg PO DAILY 12/03/22 12/03/22 12/03/22 History mg] Budesonide/Formoterol Fumarate 2 puff IH BID 12/03/22 12/03/22 12/03/22 History [Budesonide-Formoterol 160-4.5] Levothyroxine Sodium 50 mcg PO DAILY 12/03/22 12/03/22 12/03/22 History [Levothyroxine] Lisinopril 10 mg [Zestril 10 10 mg PO DAILY 12/03/22 12/03/22 12/03/22 History MG] Pravastatin Sodium 80 mg PO HS 12/03/22 12/03/22 12/02/22 History Roflumilast 500 mcg PO DAILY 12/03/22 12/03/22 12/03/22 History Theophylline Anhydrous 300 mg PO BID 12/03/22 12/03/22 12/03/22 History [Theophylline ER] Tiotropium Witter [Spiriva 2 puff IH DAILY 12/03/22 12/03/22 12/03/22 History Respimat] Ubidecarenone [Co Q10] 200 mg PO 12/03/22 12/03/22 12/02/22 History Cephalexin Mh 500 mg [Keflex 500 500 mg PO Q6H 7 Days #28 cap 12/05/22 Unknown Rx mg] Current Medications Discontinued Medications Generic Name Dose Route Start Last Admin Trade Name Freq PRN Reason Stop Dose Admin Albuterol Sulfate 2.5 mg 12/03/22 13:58 12/03/22 14:26 Albuterol Sulfate 2.5 Mg/3 Ml Neb 12/03/22 13:59 2.5 mg STAT ONE Administration Albuterol Sulfate Confirm 12/03/22 14:12 Albuterol Sulfate 2.5 Mg/3 Ml Neb Administered 12/03/22 14:13 Dose 2.5 mg IH .STK-MED ONE Albuterol Sulfate 2.5 mg 12/03/22 19:00 12/03/22 22:30 Albuterol Sulfate 2.5 Mg/3 Ml Neb 01/02/23 18:59 2.5 mg Q4HRT KARSON Administration Albuterol Sulfate 2.5 mg 12/04/22 07:00 12/05/22 11:32 Albuterol Sulfate 2.5 Mg/3 Ml Neb 01/03/23 06:59 2.5 mg QIDRT KARSON Administration Aspirin 81 mg 12/04/22 10:00 12/05/22 09:43 Aspirin 81 Mg Tablet.Ec PO 01/03/23 09:59 81 mg DAILY KARSON Administration Benzonatate 100 mg 12/04/22 13:00 12/05/22 12:31 Benzonatate 100 Mg Capsule PO 01/03/23 12:59 100 mg QID KARSON Administration Methylprednisolone Sodium 0 mg 12/03/22 13:58 12/03/22 14:07 Succinate 125 mg/ Sterile IV 12/03/22 13:59 125 mg Water 2 ml STAT ONE Administration Methylprednisolone Sodium 0 mg 12/03/22 18:00 12/05/22 12:31 Succinate 60 mg/ Sterile Water IV 01/02/23 17:59 60 mg 2 ml Q6HT KARSON Administration Device 1 12/05/22 19:30 Therapuetic Drug Level Monitor Each IJ 12/05/22 19:31 1XONLY ONE Vancomycin HCl 1 gm in 200 mls @ 125 mls/hr 12/03/22 15:40 12/03/22 16:37 Vancomycin 1 Gram/200 Ml Bag IV 12/03/22 17:15 125 mls/hr STAT ONE 125 mls/hr Administration Piperacillin Sod/Tazobactam 100 mls @ 200 mls/hr 12/03/22 15:40 12/03/22 16:41 Sod 3.375 gm/ Sodium Chloride IV 12/03/22 16:09 200 mls/hr STAT ONE Administration Sodium Chloride Confirm 12/03/22 15:45 Sodium Chloride 100ml Mini-Bag Plus Administered 12/03/22 15:46 Dose 100 mls @ ud IV .STK-MED ONE Vancomycin HCl Confirm 12/03/22 16:37 Vancomycin 1 Gram/200 Ml Bag Administered 12/03/22 16:38 Dose 1 gm in 200 mls @ ud IV .STK-MED ONE Vancomycin HCl 1 gm in 200 mls @ 125 mls/hr 12/03/22 16:56 12/03/22 17:32 Vancomycin 1 Gram/200 Ml Bag IV 01/02/23 16:55 Not Given Q24H KARSON Piperacillin Sod/Tazobactam 100 mls @ 200 mls/hr 12/04/22 00:00 12/05/22 12:32 Sod 3.375 gm/ Sodium Chloride IV 12/07/22 00:00 200 mls/hr Q6HT KARSON Administration Vancomycin HCl 1.25 gm in 250 mls @ 150 mls/hr 12/04/22 08:00 12/05/22 01:35 Vancomycin 1.25 Gm/250 Ml Bag IV 12/07/22 07:59 150 mls/hr Q18H KARSON Administration Levothyroxine Sodium 50 mcg 12/04/22 08:00 12/05/22 06:49 Levothyroxine Sodium 50 Mcg Tablet PO 01/03/23 07:59 50 mcg DAILY@0700 KARSON Administration Lisinopril 10 mg 12/04/22 10:00 12/05/22 09:43 Lisinopril 10 Mg Tablet PO 01/03/23 09:59 10 mg DAILY KARSON Administration Lorazepam 1 mg 12/04/22 12:22 12/04/22 13:26 Lorazepam 2 Mg/1 Ml 2 Mg Vial IV 01/03/23 12:21 1 mg Q6H PRN PRN Administration SHAKING/TREMORS Methylprednisolone Sodium Succinate Confirm 12/03/22 14:06 Methylprednis Sod Succ 125 Mg/2 Ml Vial Administered 12/03/22 14:07 Dose 125 mg .ROUTE .STK-MED ONE Miscellaneous Information 1 each 12/04/22 08:15 Medication Intervention 1 Each Each 01/03/23 08:14 .RN TO CHECK KARSON Patient Own Med : 1 each 12/04/22 07:00 12/05/22 07:27 Symbicort IH 01/03/23 06:59 1 each BIDRT KARSON Administration Piperacillin Sod/Tazobactam Sod Confirm 12/03/22 15:44 Piperacillin/Tazobactam Sodium 3.375 Gm Vial Administered 12/03/22 15:45 Dose 3.375 gm IV .STK-MED ONE Piperacillin Sod/Tazobactam Sod Confirm 12/03/22 20:28 Piperacillin/Tazobactam Sodium 3.375 Gm Vial Administered 12/03/22 20:29 Dose 3.375 gm IV .STK-MED ONE Roflumilast 500 mcg 12/04/22 10:00 12/05/22 09:43 Roflumilast 500 Mcg Tablet PO 01/03/23 09:59 500 mcg DAILY KARSON Administration Simvastatin 80 mg 12/03/22 22:00 12/03/22 22:33 Simvastatin 20 Mg Tablet PO 01/02/23 21:59 80 mg HS KARSON Administration Simvastatin 40 mg 12/04/22 22:00 12/04/22 21:12 Simvastatin 20 Mg Tablet PO 01/03/23 21:59 40 mg HS KARSON Administration Sterile Water Confirm 12/03/22 14:06 Water For Injection,Sterile 10 Ml Vial Administered 12/03/22 14:07 Dose 10 ml IJ .STK-MED ONE Sterile Water Confirm 12/03/22 20:27 Water For Injection,Sterile 10 Ml Vial Administered 12/03/22 20:28 Dose 10 ml IJ .STK-MED ONE Theophylline 300 mg 12/03/22 22:00 12/05/22 09:44 Theophylline Anhydrous 400 Mg Tab.Er.24hr Tablet PO 01/02/23 21:59 300 mg BID KARSON Administration Tiotropium Witter 1 ea 12/04/22 10:00 12/05/22 07:28 Tiotropium Witter 18 Mcg/Cap Inhaler IH 01/03/23 09:59 1 ea DAILY KARSON Administration Intake & Output (Last 24 hours) 12/03/22 12/04/22 12/05/22 12/06/22 11:59 11:59 11:59 11:59 Intake Total 940 1880 Output Total 725 Balance 215 1880 Weight 71.2 kg 71.2 kg Microbiology Results (Last 24 hours) 12/03/22 14:24 Blood Blood Culture Gram Stain - Pending 12/03/22 14:24 Blood Blood Culture - Preliminary NO GROWTH TO DATE 12/03/22 14:00 Blood Blood Culture Gram Stain - Pending 12/03/22 14:00 Blood Blood Culture - Preliminary NO GROWTH TO DATE Laboratory Results (Last 24 hours) 12/05/22 09:27 Vancomycin Trough 13.36 Orders (Last 24 hours) Category Date Time Status Discharge Planning,Consult Routine Discharge 12/05/22 Active Discharge Routine Discharge 12/05/22 12:45 Ordered Vancomycin, Trough Urgent Lab 12/05/22 09:27 Completed Vancomycin, Trough Urgent Lab 12/05/22 19:30 Ordered Simvastatin 20Mg [Zocor 20Mg] Med 12/04/22 22:00 Discontinued 40 mg PO HS Therapuetic Drug Level Monitor [Trough Drug Levels] Med 12/05/22 19:30 Discontinued 1 IJ 1XONLY ONE Respiratory MDI Q12H RT 12/05/22 07:00 Completed Patient Care Notes (Last 24 hours) 12/05/22 13:58 Nursing Note by Rosemary Sosa FAXED RECORDS TO [facility] Initialized on 12/05/22 13:58 - END OF NOTE 12/05/22 13:53 Nursing Note by Rosemary Sosa NOTIFIED [facility] THAT PATIENT WILL DC TODAY. ([place]) Initialized on 12/05/22 13:53 - END OF NOTE 12/05/22 12:43 Case Management Note by Rita Heart AFTER PHYSICIAN ROUNDED, PATIENT NOW AGREEABLE TO [facility]. HE REPORTS HE HAS HAD HHC IN THE PAST NOT SINCE LIVING IN THIS AREA. HE HAS NO PREFERENCE OF COMPANY. REFERRAL WILL BE SENT TO [facility]. THEY ARE READILY AVAILABLE AND TOP RATED. NEB MACHINE ALSO ORDERED THRU [facility] USING [employer]. THIS WILL BE DELIVERED TO PATIENT'S HOME. NEB AND HHC INFORMATION WAS ADDED TO PATIENT'S DC INSTRUCTIONS Initialized on 12/05/22 12:43 - END OF NOTE 12/05/22 12:27 Case Management Note by Rita Heart REFERRAL FAXED TO [facility]. THEY ARE AWARE PATIENT IS DCING HOME TODAY. THEY WILL NEED FAXED THE DC INSTRUCTIONS, DC MED LIST AND DC SUMMARY (IF AVAILABLE) TO [phone] Initialized on 12/05/22 12:27 - END OF NOTE 12/05/22 10:26 Case Management Note by Rita Heart S/W PATIENT- HE CONTINUES TO DENY ANY NEW NEEDS AT TIME OF DC. HE PLANS TO RETURN HOME TO HIS F AT TIME OF DC. HE REPORTS HIS NEB MACHINE IS VERY OLD AND MAKES SOME NOISES. PATIENT REQUESTING NEW ONE AT DC. WILL SEND IN FOR ONE WITH [facility] AT TIME OF DC Initialized on 12/05/22 10:26 - END OF NOTE - Vitals & Intake/Output Vital Signs: Vital Signs Temperature 97.6 F 12/05/22 11:31 Pulse Rate 98 H 12/05/22 11:33 Respiratory Rate 20 12/05/22 11:33 Blood Pressure 121/60 12/05/22 11:31 O2 Sat by Pulse Oximetry 92 L 12/05/22 11:33 Intake & Output: Intake & Output 12/03/22 12/04/22 12/05/22 12/06/22 11:59 11:59 11:59 11:59 Intake Total 940 1880 Output Total 725 Balance 215 1880 Weight 71.2 kg 71.2 kg - Lab Result Diagrams: 12/04/22 05:08 12/04/22 05:08 Lab Results-Last 24 Hrs: Lab Results-Last 24 Hours 12/05/22 Range/Units 09:27 Vancomycin Trough 13.36 (10-20) ug/mL Micro Results-Entire Visit: Microbiology 12/03/22 14:24 Blood Culture - Preliminary Blood NO GROWTH TO DATE 12/03/22 14:00 Blood Culture - Preliminary Blood NO GROWTH TO DATE - Procedures and Test Procedures and Tests throughout Hospitalization: Therapy Orders & Screens 12/03/22 14:27 Respiratory Therapy Assessment DAILY Comment: 12/03/22 16:59 Respiratory Therapy Assessment DAILY Comment: Diagnosis: COPD exacerbation, consolidating pneumonia 12/04/22 07:40 Oxygen NASAL CANNULA 2 lpm Comment: Diagnosis: shortness of breath for 4 days 12/05/22 07:00 Respiratory MDI Q12H Comment: Advair 115 2 puffs BID Diagnosis: shortness of breath for 4 days Discharge Exam General Appearance: no apparent distress, alert Neurologic Exam: alert, oriented x 3, cooperative, normal mood/affect, nml cerebellar function, sensation nml, No motor deficits Eye Exam: PERRL, EOMI, eyes nml inspection Ears, Nose, Throat Exam: normal ENT inspection, pharynx normal, moist mucous membranes Neck Exam: normal inspection, non-tender, supple, full range of motion Respiratory Exam: diminished breath sounds, No respiratory distress Cardiovascular Exam: regular rate/rhythm, normal heart sounds Gastrointestinal/Abdomen Exam: soft, No tenderness, No mass Male Genitalia Exam: deferred Rectal Exam: deferred Back Exam: normal inspection, normal range of motion, No CVA tenderness, No vertebral tenderness Extremity Exam: normal inspection, normal range of motion Skin Exam: normal color, warm, dry Final Diagnosis/Problem List - Final Discharge Diagnosis/Problem (1) COPD exacerbation Status: Resolved Code(s): J44.1 - CHRONIC OBSTRUCTIVE PULMONARY DISEASE W (ACUTE) EXACERBATION (2) Hypoxia Status: Chronic Code(s): R09.02 - HYPOXEMIA (3) SOB (shortness of breath) Status: Resolved Code(s): R06.02 - SHORTNESS OF BREATH - Discharge Discharge Date: 12/05/22 Disposition: Home, Self-Care Condition: Stable Prescriptions: New Cephalexin Mh 500 mg [Keflex 500 mg] 500 mg PO Q6H 7 Days #28 cap Continue Aspirin EC 81 mg [Ecotrin 81 mg] 81 mg PO DAILY Lisinopril 10 mg [Zestril 10 MG] 10 mg PO DAILY Ubidecarenone [Co Q10] 200 mg PO HS Tiotropium Witter [Spiriva Respimat] 2 puff IH DAILY Theophylline Anhydrous [Theophylline ER] 300 mg PO BID Roflumilast 500 mcg PO DAILY Pravastatin Sodium 80 mg PO HS Levothyroxine Sodium [Levothyroxine] 50 mcg PO DAILY Budesonide/Formoterol Fumarate [Budesonide-Formoterol 160-4.5] 2 puff IH BID Albuterol Sulfate [Albuterol Sulfate Hfa] 2 puff IH BID Albuterol 2.5 mg/3 ml Neb [Proventil 2.5 mg/3 ml Neb] 2.5 mg IH Q6H PRN PRN PRN Reason: Shortness Of Breath Instructions: Chronic Obstructive Pulmonary Disease (COPD), Including Emphysema Additional Instructions: [facility] HAS BEEN SET UP. THEY WILL CONTACT YOU TO SET UP A TIME TO COME SEE YOU. THEIR PHONE NUMBER IS [phone]. NEB MACHINE WAS ORDERED THRU [facility]. THEY WILL CONTACT YOU FOR DELIVERY. THEIR PHONE NUMBER IS [phone] Follow up with: PETER HURST MD [Primary Care Provider] - 12/13/22 10:30 am ([place] OFFICE) Forms: Discharge Instructions
[2022-12-05] MEDS ORDERED: TROUGH DRUG LEVELS IJ ONE (19:30)
== END 2022-12-05 13:44 | disposition home health service (06) ==
LOC: ED 13:41 → MED SURG 16:52
PROVIDERS: ADMIT General Practice; ATTEND General Practice
DX: J44.1 Chronic obstructive pulmonary disease with (acute) exacerbation (principal); R09.02 Hypoxemia; R06.02 Shortness of breath; E78.5 Hyperlipidemia, unspecified; I25.10 Atherosclerotic heart disease of native coronary artery without angina pectoris; Z79.899 Other long term (current) drug therapy; Z85.46 Personal history of malignant neoplasm of prostate; Z20.828 Contact with and (suspected) exposure to other viral communicable diseases
CPT/HCPCS: 0241U; 36000; 36415; 71045; 71260; 80053; 80202; 85025; 85027; 87040; 93005; 93041; 93268; 94640; 94760; 94762; 96365; 96368; 96374; 99285; G0378; J2060; J2930; J7609; A9270-GY; J3370

== ENCOUNTER 2023-07-30 03:11 | Emergency (ER) | payer MEDICARE ==
[2023-07-30 03:15] VITALS: TEMP 98.6
--- NOTE | 2023-07-30 03:49 | ERPHSYRPT ---
<HILDA KRAFT - Last Filed: 07/30/23 06:53> - History of Present Illness Time Seen by Provider: 07/30/23 03:30 Historian: patient Exam Limitations: no limitations Patient Subjective Stated Complaint: chest pain, sob, cough Triage Nursing Assessment: pt brought back via wheelchair, alert and oriented x4. Pt c/o chest pain to the left upper chest that woke him up from sleep around midnight. Pt denies any radiation of pain. Lungs clear, heart tones reg. Pt has a cough and sob. Pt wears 2L n/c aat. Pt has some nausea but denies any vomiting. No edema noted. Physician History: Patient is a 68-year-old male presents to our emergency department for evaluation of chest pain that awoke him from his sleep at approximately midnight. Patient states that chest pain is localized to the left chest. No radiation. Pain associated with nausea. No vomiting. No trauma. No fever. Patient has a history of COPD hypercholesterolemia and a AAA with a stent. Patient wears 2 L nasal cannula at all times. Patient experiencing pain in both arms. Patient denies a history of the same. Symptoms are constant. Symptoms are moderate in intensity. Patient states his arm pain is worse when he moves. Patient voices no other complaints or concerns at this time. Timing/Duration: today Activities at Onset: none Quality: aching Location: other (Left chest) Chest Pain Radiation: no radiation Severity of Pain-Max: moderate Severity of Pain-Current: mild Modifying Factors: Improves With: nothing Associated Symptoms: nausea, other (Patient also complains of bilateral arm pain that is worse with movement at the shoulder and at the elbow) Prior Chest Pain/Cardiac Workup: no prior chest pain Nitro Today/Relief: no nitro taken today Aspirin Treatment Today: no aspirin today Allergies/Adverse Reactions: codeine Allergy (Severe, Verified 07/30/23 03:25) Anaphylactic Reaction fluticasone furoate [From Breo Ellipta] Adverse Reaction (Severe, Verified 07/30/23 03:25) Tightness in Chest vilanterol [From Breo Ellipta] Adverse Reaction (Severe, Verified 07/30/23 03: 25) Tightness in Chest Home Medications: Albuterol 2.5 mg/3 ml Neb [Proventil 2.5 mg/3 ml Neb] 2.5 mg IH Q6H PRN PRN 12/03/22 [History] Albuterol Sulfate [Albuterol Sulfate Hfa] 2 puff IH BID 12/03/22 [History] Aspirin EC 81 mg [Ecotrin 81 mg] 81 mg PO DAILY 12/03/22 [History] Budesonide/Formoterol Fumarate [Budesonide-Formoterol 160-4.5] 2 puff IH BID [History] Levothyroxine Sodium 50 mcg PO DAILY 12/03/22 [History] Lisinopril 10 mg [Zestril 10 MG] 10 mg PO DAILY 12/03/22 [History] Pravastatin Sodium 80 mg PO HS 12/03/22 [History] Roflumilast 500 mcg PO DAILY 12/03/22 [History] Theophylline Anhydrous [Theophylline ER] 300 mg PO BID 12/03/22 [History] Tiotropium [place] [Spiriva Respimat] 2 puff IH DAILY 12/03/22 [History] Ubidecarenone [Co Q-10] 200 mg PO HS 12/03/22 [History] Hx Tetanus, Diphtheria Vaccination/Date Given: Yes Hx Influenza Vaccination/Date Given: Yes Hx Pneumococcal Vaccination/Date Given: Yes Immunizations Up to Date: Yes Travel Risk - International Travel Have you traveled outside of the country in past 3 weeks: No - Coronavirus Screening Are you exhibiting any of the following symptoms?: Yes Symptoms: Cough: New Onset, Shortness of Breath Close contact with a COVID-19 positive Pt in past 14-21 Days: No - Vaccine Status Have you recieved a Covid-19 vaccination: No - Review of Systems Constitutional: No Symptoms, No Fever, No Chills Eyes: No Symptoms Ears, Nose, & Throat: No Symptoms Respiratory: No Symptoms, No Cough, No Dyspnea Cardiac: No Symptoms, No Chest Pain, No Edema, No Syncope Abdominal/Gastrointestinal: No Symptoms, No Abdominal Pain, No Nausea, No Vomiting, No Diarrhea Genitourinary Symptoms: No Symptoms, No Dysuria Musculoskeletal: No Symptoms, No Back Pain, No Neck Pain Skin: No Symptoms, No Rash Neurological: No Symptoms, No Dizziness, No Focal Weakness, No Sensory Changes Psychological: No Symptoms Endocrine: No Symptoms Hematologic/Lymphatic: No Symptoms Immunological/Allergic: No Symptoms All Other Systems: Reviewed and Negative - Past Medical History Pertinent Past Medical History: Yes Neurological History: No Pertinent History ENT History: No Pertinent History Cardiac History: Aneurysm, Coronary Artery Disease, High Cholesterol, Hypertension, Peripheral Vascular Disease Respiratory History: COPD, Emphysema, Pneumonia Endocrine Medical History: Hypothyroidism Musculoskeletal History: Arthritis GI Medical History: No Pertinent History History: No Pertinent History Psycho-Social History: No Pertinent History Male Reproductive Disorders: Prostate Cancer - Past Surgical History Past Surgical History: Yes Neuro Surgical History: No Pertinent History Cardiac: Cardiac Catheterization, Cardiac Stent Respiratory: No Pertinent History Gastrointestinal: Appendectomy Genitourinary: No Pertinent History Musculoskeletal: No Pertinent History Male Surgical History: No Pertinent History - Social History Smoking Status: Former smoker Exposure to second hand smoke: Yes Drug Use: none Patient Lives Alone: No - Physical Exam General Appearance: no apparent distress, alert Eye Exam: PERRL/EOMI, eyes nml inspection Ears, Nose, Throat Exam: normal ENT inspection, pharynx normal, moist mucous membranes Neck Exam: normal inspection, non-tender, supple, full range of motion Respiratory Exam: normal breath sounds, lungs clear, airway intact, No respiratory distress Cardiovascular Exam: regular rate/rhythm, normal heart sounds, normal peripheral pulses Gastrointestinal/Abdomen Exam: soft, No tenderness, No mass Back Exam: normal inspection, No CVA tenderness, No vertebral tenderness Extremity Exam: normal inspection, normal range of motion Neurologic Exam: alert, oriented x 3, cooperative, normal mood/affect, sensation nml, No motor deficits Skin Exam: normal color, warm, dry Lymphatic Exam: No adenopathy SpO2 Interpretation: normal SpO2: 98 O2 Delivery: Room Air - Course Nursing assessment & vital signs reviewed: Yes EKG Interpreted by Me: RATE, Sinus Rhythm, NORMAL AXIS, NORMAL INTERVALS, Other (Initial EKG completed however due to tremors it was of no significant value. It was full of artifact) - Progress Progress: improved Air Movement: good Progress Note: Patient is a 68-year-old male with a history of hypertension hypercholesterolemia AAA presents to our ED for evaluation of left-sided chest pain that awoke him from his sleep. Patient complained of pain in both arms. Upper extremity pain was worse with movement. No trauma. EKG was normal sinus rhythm. CBC reveals a slight leukocytosis at 11.3. CMP essentially nonremarkable. D-dimer positive at 2.42. Magnesium 2.2. BNP within normal limits. Initial troponin negative. Urinalysis essentially nonremarkable. Urine triage pending. We are holding off on aspirin and nitro pending the results of CTA chest abdomen and pelvis. In light of patient's positive D-dimer and pain involving his extremities and known AAA we elected to perform CT chest abdomen pelvis. Results are pending. Portions of this note were created with voice recognition technology. There may be grammatical, spelling, punctuation or sound alike errors Complexity of problems addressed is moderate acute complicated No critical care time Complex of data reviewed and analyzed is extensive. Test ordered test reviewed. Results analyzed and clinically correlated with history and physical examination. Patient will require hospitalization for further evaluation and treatment. Management will be discussed with hospitalist Risk of complication and a risk of morbidity/mortality of patient management is high. Patient requires hospitalization for further evaluation and treatment. Plan of care discussed with patient. He agrees to admission to [facility] for further evaluation and treatment. Vital stable. Plan established for shared decision making. Portions of this note were created with voice recognition technology. There may be grammatical, spelling, punctuation or sound alike errors 07/30/23 06:14 Blood Culture(s) Obtained: No Antibiotics given: No Counseled pt/family regarding: lab results, diagnosis, rad results - Departure Departure Disposition: Observation Clinical Impression: Chest pain, ACS (acute coronary syndrome), Arm pain Condition: Stable Critical Care Time: No Referrals: PETER HURST MD [Primary Care Provider] - Follow up/PCP as directed <ANA OCONNOR - Last Filed: 07/30/23 08:07> - Nursing Vital Signs Nursing Vital Signs: Initial Vital Signs Temperature 98.6 F 07/30/23 03:13 Pulse Rate 102 H 07/30/23 03:13 Respiratory Rate 24 07/30/23 03:13 Blood Pressure 132/72 07/30/23 03:13 O2 Sat by Pulse Oximetry 98 07/30/23 03:13 Pain Scale Pain Intensity 6 Ordered Tests: Active Orders 24 hr Category Date Time Status Captain Waiter STAT Care 07/30/23 03:42 Active EKG-ER Only STAT Care 07/30/23 03:40 Active IV Insertion STAT Care 07/30/23 03:40 Active Pulse Oximetry (ED) STAT Care 07/30/23 03:40 Active CHEST WITH CONTRAST [CT] Stat Exams 07/30/23 04:49 Completed CTA ABD/PEL W AND/OR W/O CONTR [CT] Stat Exams 07/30/23 05:15 Completed CBC W DIFF Stat Lab 07/30/23 03:26 Completed CMP Stat Lab 07/30/23 03:26 Completed D-DIMER QUANTITATIVE Stat Lab 07/30/23 03:26 Completed MAGNESIUM Stat Lab 07/30/23 03:26 Completed NT PRO BNPII Stat Lab 07/30/23 03:26 Completed TROPONIN Q4H Lab 07/30/23 03:26 Completed TROPONIN Q4H Lab 07/30/23 07:45 Ordered TROPONIN Q4H Lab 07/30/23 11:45 Ordered UA W/RFX UR CULTURE Stat Lab 07/30/23 05:28 Completed Urine Triage Profile Stat Lab 07/30/23 05:28 Completed Lab/Rad Data: Laboratory Result Diagrams 07/30/23 03:26 07/30/23 03:26 Laboratory Results 07/30/23 07/30/23 07/30/23 Range/Units 05:28 05:28 03:26 WBC (4.0-10.5) x10^3/uL RBC (4.1-5.6) x10^6/uL Hgb (12.5-18.0) g/dL Hct (42-50) % MCV (78-100) fL MCH (26-32) pg MCHC (32-36) g/dL RDW (11.5-14.0) % Plt Count (150-450) x10^3/uL MPV (7.5-11.0) fL Gran % (36.0-66.0) % Immature Gran % (Auto) (0.00-0.4) % Nucleat RBC Rel Count (0.00-0.1) % Eos # (Auto) (0-0.5) x10^3/uL Immature Gran # (Auto) (0.00-0.03) x10^3u/L Absolute Lymphs (auto) (1.0-4.6) x10^3/uL Absolute Monos (auto) (0.0-1.3) x10^3/uL Absolute Nucleated RBC (0.00-0.01) x10^3u/L Lymphocytes % (24.0-44.0) % Monocytes % (0.0-12.0) % Eosinophils % (0.00-5.0) % Basophils % (0.0-0.4) % Absolute Granulocytes (1.4-6.9) x10^3/uL Basophils # (0-0.4) x10^3/uL D-Dimer (0.0-0.50) mg/L Sodium (137-145) mmol/L Potassium (3.5-5.1) mmol/L Chloride (98-107) mmol/L Carbon Dioxide (22-30) mmol/L Anion Gap (5-15) MEQ/L BUN (9-20) mg/dL Creatinine (0.66-1.25) mg/dL Estimated GFR ML/MIN Glucose (74-106) mg/dL Calcium (8.4-10.2) mg/dL Magnesium (1.6-2.3) mg/dL Total Bilirubin (0.2-1.3) mg/dL AST (17-59) U/L ALT (0-50) U/L Alkaline Phosphatase (38-126) U/L Troponin I (0.000-0.034) ng/mL NT-Pro-B Natriuret Pep 128 (<300) pg/mL Serum Total Protein (6.3-8.2) g/dL Albumin (3.5-5.0) g/dL Urine Color Yellow (Yellow) Urine Appearance Clear (Clear) Urine pH 5.0 (4.6-8.0) Ur Specific [place] 1.025 (1.005-1.030) Urine Protein 30 (Negative) Urine Glucose (UA) Negative (Negative) mg/dL Urine Ketones Trace A (Negative) Urine Blood Negative (Negative) Urine Nitrite Negative (Negative) Urine Bilirubin Negative (Negative) Urine Urobilinogen 0.2 (0.2) mg/dL Ur Leukocyte Esterase Trace A (Negative) U Hyaline Cast (Auto) 3-5 A (0-2) /LPF Urine Microscopic RBC 0-2 (0-5) /HPF Urine Microscopic WBC 0-2 (0-5) /HPF Ur Epithelial Cells None Seen (None Seen) /HPF Urine Bacteria None Seen (None Seen) /HPF Urine Culture Reflexed NO (NO) Urine Opiates Level NEGATIVE (NEGATIVE) Ur Methadone NEGATIVE (NEGATIVE) Urine Barbiturates NEGATIVE (NEGATIVE) Ur Phencyclidine (PCP) NEGATIVE (NEGATIVE) Urine Amphetamine NEGATIVE (NEGATIVE) U Benzodiazepine Level NEGATIVE (NEGATIVE) Urine Cocaine NEGATIVE (NEGATIVE) Urine Marijuana (THC) NEGATIVE (NEGATIVE) 07/30/23 07/30/23 07/30/23 Range/Units 03:26 03:26 03:26 WBC (4.0-10.5) x10^3/uL RBC (4.1-5.6) x10^6/uL Hgb (12.5-18.0) g/dL Hct (42-50) % MCV (78-100) fL MCH (26-32) pg MCHC (32-36) g/dL RDW (11.5-14.0) % Plt Count (150-450) x10^3/uL MPV (7.5-11.0) fL Gran % (36.0-66.0) % Immature Gran % (Auto) (0.00-0.4) % Nucleat RBC Rel Count (0.00-0.1) % Eos # (Auto) (0-0.5) x10^3/uL Immature Gran # (Auto) (0.00-0.03) x10^3u/L Absolute Lymphs (auto) (1.0-4.6) x10^3/uL Absolute Monos (auto) (0.0-1.3) x10^3/uL Absolute Nucleated RBC (0.00-0.01) x10^3u/L Lymphocytes % (24.0-44.0) % Monocytes % (0.0-12.0) % Eosinophils % (0.00-5.0) % Basophils % (0.0-0.4) % Absolute Granulocytes (1.4-6.9) x10^3/uL Basophils # (0-0.4) x10^3/uL D-Dimer 2.42 H* (0.0-0.50) mg/L Sodium 138 (137-145) mmol/L Potassium 3.8 (3.5-5.1) mmol/L Chloride 102 (98-107) mmol/L Carbon Dioxide 24 (22-30) mmol/L Anion Gap 16.7 H (5-15) MEQ/L BUN 23 H (9-20) mg/dL Creatinine 1.23 (0.66-1.25) mg/dL Estimated GFR 64.0 ML/MIN Glucose 129 H (74-106) mg/dL Calcium 9.4 (8.4-10.2) mg/dL Magnesium 2.2 (1.6-2.3) mg/dL Total Bilirubin 1.40 H (0.2-1.3) mg/dL AST 18 (17-59) U/L ALT 13 (0-50) U/L Alkaline Phosphatase 104 (38-126) U/L Troponin I < 0.012 (0.000-0.034) ng/mL NT-Pro-B Natriuret Pep (<300) pg/mL Serum Total Protein 7.6 (6.3-8.2) g/dL Albumin 4.3 (3.5-5.0) g/dL Urine Color (Yellow) Urine Appearance (Clear) Urine pH (4.6-8.0) Ur Specific [place] (1.005-1.030) Urine Protein (Negative) Urine Glucose (UA) (Negative) mg/dL Urine Ketones (Negative) Urine Blood (Negative) Urine Nitrite (Negative) Urine Bilirubin (Negative) Urine Urobilinogen (0.2) mg/dL Ur Leukocyte Esterase (Negative) U Hyaline Cast (Auto) (0-2) /LPF Urine Microscopic RBC (0-5) /HPF Urine Microscopic WBC (0-5) /HPF Ur Epithelial Cells (None Seen) /HPF Urine Bacteria (None Seen) /HPF Urine Culture Reflexed (NO) Urine Opiates Level (NEGATIVE) Ur Methadone (NEGATIVE) Urine Barbiturates (NEGATIVE) Ur Phencyclidine (PCP) (NEGATIVE) Urine Amphetamine (NEGATIVE) U Benzodiazepine Level (NEGATIVE) Urine Cocaine (NEGATIVE) Urine Marijuana (THC) (NEGATIVE) 07/30/23 Range/Units 03:26 WBC 11.3 H (4.0-10.5) x10^3/uL RBC 4.54 (4.1-5.6) x10^6/uL Hgb 13.1 (12.5-18.0) g/dL Hct 39.9 L (42-50) % MCV 87.9 (78-100) fL MCH 28.9 (26-32) pg MCHC 32.8 (32-36) g/dL RDW 13.2 (11.5-14.0) % Plt Count 283 (150-450) x10^3/uL MPV 9.7 (7.5-11.0) fL Gran % 72.8 H (36.0-66.0) % Immature Gran % (Auto) 0.4 (0.00-0.4) % Nucleat RBC Rel Count 0.0 (0.00-0.1) % Eos # (Auto) 0.27 (0-0.5) x10^3/uL Immature Gran # (Auto) 0.04 H (0.00-0.03) x10^3u/L Absolute Lymphs (auto) 1.71 (1.0-4.6) x10^3/uL Absolute Monos (auto) 1.02 (0.0-1.3) x10^3/uL Absolute Nucleated RBC 0.00 (0.00-0.01) x10^3u/L Lymphocytes % 15.1 L (24.0-44.0) % Monocytes % 9.0 (0.0-12.0) % Eosinophils % 2.4 (0.00-5.0) % Basophils % 0.3 (0.0-0.4) % Absolute Granulocytes 8.27 H (1.4-6.9) x10^3/uL Basophils # 0.03 (0-0.4) x10^3/uL D-Dimer (0.0-0.50) mg/L Sodium (137-145) mmol/L Potassium (3.5-5.1) mmol/L Chloride (98-107) mmol/L Carbon Dioxide (22-30) mmol/L Anion Gap (5-15) MEQ/L BUN (9-20) mg/dL Creatinine (0.66-1.25) mg/dL Estimated GFR ML/MIN Glucose (74-106) mg/dL Calcium (8.4-10.2) mg/dL Magnesium (1.6-2.3) mg/dL Total Bilirubin (0.2-1.3) mg/dL AST (17-59) U/L ALT (0-50) U/L Alkaline Phosphatase (38-126) U/L Troponin I (0.000-0.034) ng/mL NT-Pro-B Natriuret Pep (<300) pg/mL Serum Total Protein (6.3-8.2) g/dL Albumin (3.5-5.0) g/dL Urine Color (Yellow) Urine Appearance (Clear) Urine pH (4.6-8.0) Ur Specific [place] (1.005-1.030) Urine Protein (Negative) Urine Glucose (UA) (Negative) mg/dL Urine Ketones (Negative) Urine Blood (Negative) Urine Nitrite (Negative) Urine Bilirubin (Negative) Urine Urobilinogen (0.2) mg/dL Ur Leukocyte Esterase (Negative) U Hyaline Cast (Auto) (0-2) /LPF Urine Microscopic RBC (0-5) /HPF Urine Microscopic WBC (0-5) /HPF Ur Epithelial Cells (None Seen) /HPF Urine Bacteria (None Seen) /HPF Urine Culture Reflexed (NO) Urine Opiates Level (NEGATIVE) Ur Methadone (NEGATIVE) Urine Barbiturates (NEGATIVE) Ur Phencyclidine (PCP) (NEGATIVE) Urine Amphetamine (NEGATIVE) U Benzodiazepine Level (NEGATIVE) Urine Cocaine (NEGATIVE) Urine Marijuana (THC) (NEGATIVE) - Progress Progress Note: 07/30/23 08:05 The CTA of the abdomen pelvis shows unchanged abdominal aortic aneurysm at the L2-L3 level with bifurcated stent graft placement which appears unremarkable and no extravasation or leak. Slightly reduced contrast-enhancement of the lower pole of the left kidney. There is no acute vascular thrombus. The results of this test was discussed with the patient as well as the hospitalist. CT of the chest shows no evidence for acute or chronic pulmonary embolus. There is evidence of chronic infective changes noted in the left lung. There is fibrotic changes present. There is a lobulated soft tissue density nodule in the right middle lobe. Recommendation is to repeat the CT of the chest in 3 months. This was discussed with the patient and the telehospitalist. In the chest there is no evidence of an aortic aneurysm.
[2023-07-30 04:18] LABS: ALBUMIN 4.3 g/dL (3.5-5.0); ANION GAP 16.7 MEQ/L (5-15); BILIRUBIN,TOTAL 1.4 mg/dL (0.2-1.3); Calcium 9.4 mg/dL (8.4-10.2); Creatinine 1 1.23 mg/dL (0.66-1.25); MAGNESIUM 2.2 mg/dL (1.6-2.3); Potassium 3.8 mmol/L (3.5-5.1); Total Protein 7.6 g/dL (6.3-8.2)
[2023-07-30 04:22] LABS: Absolute Neutrophil Ct (ANC) 8.27 x10^3/uL (1.4-6.9); BASOPHIL % 0.3 % (0.0-0.4); Basophil (Absolute #) 0.03 x10^3/uL (0-0.4); Eosinophil % 2.4 % (0.00-5.0); Eosinophil (Absolute #) 0.27 x10^3/uL (0-0.5); Hematocrit 39.9 % (42-50); Hemoglobin 13.1 g/dL (12.5-18.0); IMMATURE GRAN # 0.04 x10^3u/L (0.00-0.03); IMMATURE GRAN % 0.4 % (0.00-0.4); Lymphocyte (Absolute #) 1.71 x10^3/uL (1.0-4.6); Lymphocytes % 15.1 % (24.0-44.0); Mean Cell Volume 87.9 fL (78-100); Mean Corpuscular Hemoglobin 28.9 pg (26-32); Mean Corpuscular Hgb Concent. 32.8 g/dL (32-36); Mean Platelet Volume 9.7 fL (7.5-11.0); Monocyte (Absolute #) 1.02 x10^3/uL (0.0-1.3); Neutrophil % 72.8 % (36.0-66.0); Platelet Count 283 x10^3/uL (150-450); Red Blood Count 4.54 x10^6/uL (4.1-5.6); Red Cell Distribution Width 13.2 % (11.5-14.0); White Blood Count 11.3 x10^3/uL (4.0-10.5)
[2023-07-30 05:40] LABS: Appearance Clear (Clear); Bacteria None Seen /HPF (None Seen); Bilirubin Negative (Negative); Blood Negative (Negative); Epithelial Cells None Seen /HPF (None Seen); Glucose, Urine Negative (Negative); Ketones Trace (Negative); Leukocyte Esterase Trace (Negative); Nitrite Negative (Negative); Protein,Urine Dip 30 (Negative); RBC 0-2 /HPF (0-5); Specific Gravity 1.025 (1.005-1.030); Urobilinogen 0.2 mg/dL (0.2); WBC 0-2 /HPF (0-5)
[2023-07-30 05:42] LABS: ADD URINE CULTURE? NO (NO)
[2023-07-30 06:30] LABS: Amphetamine,Urine NEGATIVE (NEGATIVE); Barbiturate,Urine NEGATIVE (NEGATIVE); Benzodiazepine,Urine NEGATIVE (NEGATIVE); Cocaine,Urine NEGATIVE (NEGATIVE); Methadone,Urine NEGATIVE (NEGATIVE); Opiate,Urine NEGATIVE (NEGATIVE); PCP,Urine NEGATIVE (NEGATIVE); THC,Urine NEGATIVE (NEGATIVE)
--- NOTE | 2023-07-30 06:44 | XRAY ---
CLINICAL HISTORY:cp, sob COMPARISON:Comparison to previous CT scan dated 07/17/2023. TECHNIQUE:Multiple enhanced axial sections were acquired through the chest and upper abdomen. In addition, coronal and sagittal reformatted images were also acquired. Total DLP is 368mgy-cm and CTDL is 8.0mgy. FINDINGS: The ascending thoracic aorta measures 3.7 cm, Arch of her time measures 2.98 cm showing Multifocal atheromatous calcified plaque Causing mild luminal narrowing, the descending thoracic aorta measures 3.3 cm, it is also shows circumferential interrupted calcified and soft tissue plaques without causing significant narrowing. The pulmonary trunk and its branches appear within normal caliber evidence of acute or chronic thromboembolic disease. Paraseptal and panlobular emphysematous changes were noted in both lungs. Fibrocystic changes with calcification with adjacent ground-glass haze and prominent reticulation causing Superior retraction of hilum and loss of left upper lobe volume Left-sided pleural thickening seen There is a lobulated soft tissue Density nodule measuring 1.1x 0.8 cm Noted in the right middle lobe. No evidence of any mass lesion was seen. No evidence of pleural effusion or pneumothorax on either side. The trachea and main stem bronchi appear patent. The visualized esophagus appears normal. Normal enhancing mediastinal vessels were noted. On mediastinal window settings, no evidence of mediastinal or hilar lymphadenopathy was seen. Included sections through upper abdomen show normal Early filling of hepatic veins is appreciated.No other significant abnormality seen On appropriate bone window settings, Degenerative changes noted in the spine IMPRESSION: 1. Chronic infective changes were noted in the left lung as evidenced by fibrocystic changes causing loss of left upper lobe volume with superior retraction of hilum. 2. Panlobular and para-septal emphysematous changes were noted in both lung holm. 3. A lobulated Soft tissue density nodule was Noted in right middle lobe measuring 1.1x 0.8 cm, according to Fleischner Society pulmonary nodule recommendations, consider CT at 3 months 4. Atheromatous calcific changes were noted in aorta. No significant aneurysmal dilatation seen 5. No evidence of acute or chronic Pulmonary thromboembolic disease. 6. In comparison to the previous CT scan dated 07/17/2023 no significant interval changes were noted. Electronically Signed by: Ricardo Kellogg MD. (07/30/2023 05:44:21 REVERBERATORY [employer]MER)
--- NOTE | 2023-07-30 07:57 | XRAY ---
CLINICAL HISTORY:cp, sob, AAA COMPARISON:Previous CT scan of the abdomen dated 05/16/2023 is compared TECHNIQUE:Multiple axial sections of CT scan of abdominal angiography, abdomen, and pelvis were carried out after non-ionic IV contrast enhancement. Coronal and Sagittal reformations were also acquired. FINDINGS: Redemonstration of unchanged abdominal aortic aneurysm at L2-L3 level with bifurcated covered stent graft placement which appears unremarkable with no contrast extravasation/ graft leak. The aneurysm sac measures 9.5 x 4.7 x 4.3 cm CCx AP x TS dimension also showing no gross interval change and is showing peripheral wall calcification. Normal contrast enhancement of the aorta and its bifurcation and branches was noted without evidence of thrombus. Mild atherosclerotic calcification noted In the visualized arteries. Slightly reduced contrast-enhancement of the lower pole of left kidney noted however no acute vascular thrombus was identified in the renal vessels, could be flow-related, delayed images are not provided. Both kidneys are otherwise enhancing normally. No evidence of focal mass, calculus or hydronephrosis noted. Liver is normal in size. No focal mass seen. Intra and extra hepatic biliary ducts are not dilated. Gallbladder appears normal. No evidence of radio-opaque calculus, wall thickening or pericholecystic fluid. Spleen appears normal. No evidence of focal mass seen. Few splenic calcified granulomas. Pancreas appears normal. No evidence of mass lesion noted. Both adrenal glands appear normal. No discrete lesion noted. Urinary bladder is partially filled at the time of scan without evidence of vesical calculus. Prostate is enlarged measuring 4.3 x 5.2 x 4.8 cm. Few small air-filled outpouchings noted in the large bowel representing diverticulosis without definite imaging evidence of acute or vertebral arteries. Small and large bowel loops grossly appear otherwise normal. No abnormal wall thickness or dilatation noted. Appendix is not visualized however no fat stranding or collection noted in the right iliac fossa. No significant lymphadenopathy seen. Abdominal and pelvic vasculature show normal enhancement. No evidence of ascites or mesenteric fat stranding noted. On bone window settings, reduced generalized bone density noted with degenerative changes in the lumbar spine along with grade I anterolisthesis L5 over S1. Chest/lungs are discussed in a separate study. IMPRESSION: Redemonstration of unchanged abdominal aortic aneurysm at L2-L3 level with bifurcated covered stent graft placement which appears unremarkable with no contrast extravasation/ graft leak. Slightly reduced contrast-enhancement of the lower pole of left kidney noted however no acute vascular thrombus was identified in the renal vessels, could be flow-related/artifactual, however further evaluation is suggested if clinically indicated. Electronically Signed by: Ricardo Kellogg MD. (07/30/2023 06:56:40 [employer])
[2023-07-30 08:34] VITALS: BP 124/64; PULSE 91; RESP 23; O2SAT 97
[2023-07-30] MEDS ORDERED: Zofran 4 MG/2 ML VIAL IV ONE (08:36)
[2023-07-30] MEDS ORDERED: MORPHINE SULFATE 2 MG INJ IV ONE (08:36)
[2023-07-30] MEDS ORDERED: Norflex 60 MG/2 ML IV ONE (08:37)
[2023-07-30] MEDS ORDERED: Zofran 4 MG/2 ML VIAL ONE (08:39)
[2023-07-30] MEDS ORDERED: MORPHINE SULFATE 2 MG INJ ONE (08:39)
[2023-07-30] MEDS ORDERED: Norflex 60 MG/2 ML ONE (08:39)
== END 2023-07-30 09:49 | disposition home or self-care (01) ==
LOC: ED 03:11
DX: I24.9 Acute ischemic heart disease, unspecified (principal); R07.9 Chest pain, unspecified; M79.601 Pain in right arm; M79.602 Pain in left arm; E78.5 Hyperlipidemia, unspecified; I10 Essential (primary) hypertension; Z79.899 Other long term (current) drug therapy; Z28.310 Unvaccinated for COVID-19
CPT/HCPCS: 36000; 36415; 71260; 74174; 80053; 80307; 81001; 83735; 83880; 84484; 85025; 85379; 93005; 93041; 94760; 96374; 96375; 99284; J2270; J2360; J2405